=== PATIENT | female | born 1960 | race Caucasian/White ===

== ENCOUNTER 2024-04-26 20:49 | Inpatient (IN) | payer MEDICARE, SELFPAY ==
[2024-04-26] VITALS (8 sets, daily range): BP systolic 115–168; BP diastolic 50–81; PULSE 70–86; BMI 31.7
[2024-04-26 16:32] LABS: % Basophils 0.9 % (0-2); % Eosinophils 1.5 % (0-6); % Immature Granulocytes 0.1 % (0-0.5); % Lymphocytes 15.6 % (20.5-51.1); % Monocytes 8.9 % (1.7-9.3); Absolute Basophils 0.1 10^3/uL (0-0.2); Absolute Eosinophils 0.1 10^3/uL (0-0.7); Absolute Lymphocytes 1.1 10^3/uL (1.2-3.4); Absolute Monocytes 0.6 10^3/uL (0.1-0.6); Absolute Neutrophils 4.9 10^3/uL (1.4-6.5); Hematocrit 41.5 % (37.0-47.0); Hemoglobin 14.9 g/dL (12.0-16.0); Mean Corp Hgb Conc. 35.9 g/dL (33.0-37.0); Mean Corpuscular Hgb 31.5 pg (27.0-31.0); Mean Corpuscular Volume 87.7 fL (81.0-99.0); Mean Platelet Volume 9.9 fL (7.4-10.4); Nucleated Red Blood Cells % 0 %; Platelet Count 244 10^3/uL (130-400); Red Blood Cell Count 4.73 10^6/uL (4.20-5.40); Red Cell Dist. Width 11.8 % (11.5-14.5); White Blood Cell Count 6.7 10^3/uL (4.8-10.8)
--- NOTE | 2024-04-26 16:38 | ED.GENMED ---
History of Present Illness
General
Chief Complaint: Fainting/Passed Out
Source: patient
Exam Limitations: none
Time Seen by Provider: 04/26/24 15:56
Nursing documentation reviewed up to this point in time: agreed with
History of Present Illness
History of Present Illness:
Patient is a 63 yr old female who has a history of neurocardiogenic syncope, lupus presents to the ER for evaluation. Patient reports she has chronic issues with vomiting diarrhea this occurs intermittently with medication changes. This is not
new. Some of her medicines were recently changed in fact her Cymbalta was recently increased and she has had issues over the past several weeks with nausea vomiting diarrhea. She felt like she was going to pass out yesterday when she stood up
however today she was sitting on the toilet having diarrhea and vomiting and passed out and felt her body going to the wall. She currently feels better because she feels that she is laying down. She denies any nausea vomiting currently. She
denies any associated chest pain. She does feel very dehydrated.
Past History
Past History
ED Past Medical History: Other (NEUROCARDIOGENIC SYNCOPE, asthma)
Social History
Tobacco: Non-smoker
Alcohol: None
Drug: None
Personal:
Living: with family
Review of Systems
Review of Systems
Allergies reviewed?: Yes
All Other Systems: ROS reviewed and negative except as documented in HPI and ROS
Constitutional: Reports no symptoms; Denies fever, fatigue or chills
EENT: Reports no symptoms
Respiratory: Reports no symptoms
Cardiac: Reports syncope
ABD/GI: Reports nausea, diarrhea and bloody stools; Denies abdominal pain
: Reports no symptoms
Musculoskeletal: Reports no symptoms
Skin: Reports no symptoms
Neurological: Reports no symptoms
Psychiatric: Reports no symptoms
Phy Exam
General Physical Exam
General Presentation: no apparent distress
General age: appears stated age
General Skin: warm and dry
General Habitus: normal
General Mental: alert
General Hydration: appears well hydrated
ENT Exam
ENT Exam: other (dry mucus membranes )
Cardiovascular Exam
Cardiovascular Exam: regular rate/rhythm, no murmur and normal peripheral pulses
Pulmonary Exam
Pulmonary Exam: lungs clear and no respiratory distress
Neurological Exam
Neurological Exam: alert and oriented x3
Musculoskeletal Exam
Musculoskeletal Exam: full ROM
Skin Exam
Skin Exam: normal color and warm/dry
Psychiatric Exam
Psychiatric Exam: normal mood/affect
Course
Orders/Labs/Results
Orders:
Orders
04/26/24 16:26
Complete Blood Count/With Diff Urgent
Comprehensive Metabolic Panel Urgent
04/26/24 16:38
Electrocardiogram (*1) Stat
Reason for Study: Other
Other Reason for Exam: chest pain
Cardiac Monitoring- Treatment ONCE
EKG- Treatment ONCE
IV Insert/Care/Rem.- Treatment PRN
04/26/24 16:46
0.9% Sodium Chloride 1000 ml [Nss] 1,000 ml IV BOLUS
04/26/24 19:34
Add On- LAB Urgent
Tests Added?: Magnesium
04/26/24 19:43
Add On- LAB Urgent
Tests Added?: magnesium
Potassium Chloride 10% Elixir [KCl Elixir] 40 meq PO NOW STA
Abnormal Lab Results
04/26/24
16:26
MCH 31.5 H pg
(27.0-31.0)
Absolute Lymphs (auto) 1.1 L 10^3/uL
(1.2-3.4)
Lymphocytes % 15.6 L %
(20.5-51.1)
Sodium 133 L mmol/L
(135-145)
Potassium 3.3 L mmol/L
(3.5-5.1)
Chloride 92 L mmol/L
(98-107)
Carbon Dioxide 32 H mmol/L
(22-30)
BUN 23 H mg/dl
(7-17)
Creatinine 1.4 H mg/dL
(0.6-1.0)
04/26/24 16:26
04/26/24 16:26
Vital Signs
Initial and Last Documented VS:
Initial Vital Signs
Pulse Resp BP Pulse Ox
54 14 125/77 95
04/26/24 16:15 04/26/24 16:15 04/26/24 16:15 04/26/24 16:15
Last Documented Vital Signs
Pulse Resp BP Pulse Ox
54 13 118/50 95
04/26/24 18:30 04/26/24 18:30 04/26/24 18:00 04/26/24 18:30
Toggle Press Operator consulted with Physician
Toggle Press Operator consulted with physician?: Yes
Name of Physician Consulted: Christopher
MDM/Problems Addressed
MDM/Problems Addressed:
Patient is a 63-year-old female who presents to the ER for evaluation of syncope. Patient has a history of neurocardiogenic syncope and also has a nausea vomiting diarrhea and had syncopal episode while having diarrhea on the toilet today. Patient
has no associated chest pain. She presents awake alert no acute distress but she does appear dehydrated was given fluids. Kidney function elevated : BUN 23 creat: 1.4 Potassium mildly low at 3.3 ; wbc nml
Patient received fluids here and is feeling better however Patient's EKG however shows a QTc of 607. With syncope and elevated prolonged QTc will adm for further monitoring
Discussed with Dr. Fisher will order magnesium supplement potassium as patient's potassium is 3.3.
Chronic conditions affecting care:
Neurocardiogenic syncope, reflux hypertension Lupus
*Pulse Oximetry
Patient hypoxic: no
*EKG
Interpretation: abnormal
Heart Rate: 59
Rate: bradycardiac
Rhythm: sinus and other (prolonged QTC )
QRS Pattern: normal QRS
Ischemia: non-specific ST changes
*Critical Care Note
Total Time (30-74mins, 75-104mins- exclusive of procedures): Not Applicable
Data Reviewed
Review of Other/Old Records Reveals: Other (Previous EKGs)
Source: patient
Patient Management
Discussion with other providers: Associate Veterinarian (DR Fisher )
ED Attending Note
-
Portions of this chart may have been created with voice recognition software.� Occasional wrong word or��sound alike� substitutions may have occurred due to the inherent limitations of voice recognition software.
Discharge Plan
Departure
Patient Disposition: Admit
Date of Disposition: 04/26/24
Time of Disposition: 19:33
Admit to: Telemetry
Admit to doctor: hospitalist
Presentation/result/management discussed w/ accepting MD/DO: Hospitalist
Patient with high blood pressure during this ER visit?: No
Condition: Fair
Covid-19: Not Applicable
Discharge Problem:
Syncope, prolonged qtc, Acute dehydration
Prescriptions:
No Action
celecoxib 200 mg Capsule
200 mg PO Q48H
tramadol 50 mg Tablet
50 mg PO DAILYPRN PRN (Reason: moderate pain)
triamterene-hydrochlorothiazid 37.5-25 mg Capsule
0.5 cap PO DAILY
lorazepam 0.5 mg Tablet
0.5 mg PO HSPRN PRN (Reason: anxiety)
pantoprazole 40 mg Tablet,Delayed Release (Dr/Ec)
40 mg PO DAILY
diphenhydramine HCl [Benadryl] 25 mg Capsule
25 mg PO QPM
aspirin 81 mg Tablet,Chewable
81 mg PO DAILY
hydroxychloroquine 200 mg Tablet
200 mg PO BID
albuterol sulfate 90 mcg/actuation Hfa Aerosol Inhaler
2 puff INHALATION R Q6HPRN PRN (Reason: sob)
fluticasone propionate [Flonase] 50 mcg/actuation [place],Suspension
1 spray INTRANASAL QPM
ezetimibe 10 mg Tablet
10 mg PO QPM
cyclosporine [Restasis] 0.05 % Dropperette
1 drp BOTH EYES QID
duloxetine 60 mg Capsule,Delayed Release(Dr/Ec)
60 mg PO DAILY
cholecalciferol (vitamin D3) [Vitamin D3] 25 mcg (1,000 unit) Tablet
25 mcg PO DAILY
nebivolol 2.5 mg Tablet
5 mg PO QPM
Patient Comments:
04/26/24: Patient can adjust dosage depending on blood pressure
melatonin 10 mg Tablet
10 mg PO HS
guaifenesin [Mucinex] 600 mg Tablet Extended Release 12hr
600 mg PO QPM
Referrals:
Drew Summers MD [Family Provider] -
Interventions
Interventions:
*Risk Screen - Suicide Last Done: 04/26/24 15:30
*General Assessment Last Done: 04/26/24 15:30
*Neglect/Abuse Screening Last Done: 04/26/24 15:30
ED- Fall Risk Assessment Last Done: 04/26/24 15:30
*ED COVID-19 Vaccine History Last Done: 04/26/24 15:30
ED- Cardiac Assessment Last Done: 04/26/24 16:27
ED- Neurological Assessment Last Done: 04/26/24 16:27
Discharge Date and Time
Print Language: WELSH
[2024-04-26 16:58] LABS: ALT (SGPT) 17 U/L (0-35); AST (SGOT) 32 U/L (14-36); Albumin 4.2 g/dl (3.5-5.0); Alkaline Phosphatase 96 U/L (38-126); Blood Urea Nitrogen 23 mg/dl (7-17); Calcium 9.7 mg/dl (8.4-10.2); Carbon Dioxide 32 mmol/L (22-30); Chloride 92 mmol/L (98-107); Glucose 99 mg/dl (70-99); Potassium 3.3 mmol/L (3.5-5.1); Sodium 133 mmol/L (135-145); Total Bilirubin 0.8 mg/dl (0.2-1.3); Total Protein 6.6 g/dl (6.3-8.2); eGFR 41.75
[2024-04-26] MEDS: NSS 1000 IV (17:26)
[2024-04-26] MEDS: KCL ELIXIR 40 MEQ PO (19:54)
[2024-04-26 20:15] LABS: Magnesium 2.1 mg/dl (1.6-2.3)
--- NOTE | 2024-04-26 20:19 | HPS.HSE ---
Family Physician
-
Family Physician: Drew Summers
Chief Complaint
-
Syncope
History of Present Illness
Patient is a 63y F with PMH significant for dysautonomia, recurrent syncope, hypertension and lupus who presents to ED complaining of syncopal episode at home. Patient states that she has been feeling somewhat lightheaded and 'near syncopal' for
the past few days. Patient notes lifelong history of recurrent syncope. She is generally aware of the preceding symptoms and has done very well to manage her symptoms without venice syncope in recent years.
She reports recent issues with N/V/D over the past few weeks. She states that these issues occur any time she has adjustments in her med regimen.
One month ago, she was newly started on duloxetine, pravastatin and alprazolam. She developed crampy LE pain that she has experienced with prior statins.
1 1/2 weeks ago she saw her PCP again. Pravastatin was discontinued, duloxetine was increased from 30mg to 60mg. Her HCTZ was also changed to Dyazide at that time.
Patient reports that she has been drinking fluids and Liquid IV in an attempt to replace her GI losses.
Today, she felt nauseated and had emesis and diarrhea. She was sitting on the toilet when she felt lightheaded, flushed and with diaphoresis. She lost consciousness.
Patient states that she slumped against the wall near the toilet. She denies any significant injury, trauma or impact. She estimates that she was unconscious for only a few seconds.
Given venice syncope and continued lightheadedness and GI symptoms, patient presented to the ED for further evaluation.
Patient states that she has been sleeping poorly for the past several months. Significant stress. Her at the end of January.
Medical History
Past Medical History
Past Medical History: Reports Other
Additional Past Medical History:
Neurocardiogenic Syncope
Familial Dysautonomia
Hypertension
Endometrial Cancer
GERD
Asthma
Lupus
Migraine Headaches
Anxiety / depression
Obesity
Hypothyroidism
Past Surgical History: Reports Other
Additional Past Surgical History:
Right Shoulder Surgery
Hysterectomy / BSO
D&C
T&A
Social History
Tobacco: Non-smoker
Alcohol: None
Drug: None
Personal: ( in January.)
Family History
Family History: Not pertinent
Allergies / Home Medications
Allergies reflects when Allergies were last updated in [facility].
Home Medications with original date entered in [facility]
Allergy/Medication List:
Allergies
Allergy/AdvReac Type Severity Reaction Status Date / Time
amoxicillin trihydrate Allergy severe Verified 04/26/24 15:38
[From Augmentin] diarrhea
codeine Allergy SOB, Verified 04/26/24 15:38
flushing,
rapid
heart rate
iron [Iron] Allergy Diarrhea Verified 04/26/24 15:38
lisinopril Allergy Unknown Verified 04/26/24 15:38
metformin Allergy Pharmacy Verified 04/26/24 15:38
to Review
NSAIDS (Non-Steroidal Allergy Flushing, Verified 04/26/24 15:38
Anti-Inflamma shortness
[Nsaids] of breath,
rapid
heart
rate, rash
potassium clavula Allergy severe Verified 04/26/24 15:38
*RETIRED-05/03/12 diarrhea
[From Augmentin]
prednisone Allergy Shortness Verified 04/26/24 15:38
of Breath
Mbydnfr-GUK-TdP Reductase Allergy Unknown Verified 04/26/24 15:38
Inhibitor
valsartan Allergy Rash Verified 04/26/24 15:38
'bunch of antibiotics' Allergy Diarrhea Uncoded 04/26/24 15:38
Enviornmental Allergy Sneezing, Uncoded 04/26/24 15:38
asthma
Gluten, dairy Allergy Diarrhea Uncoded 04/26/24 15:38
Home Medications
albuterol sulfate 90 mcg/actuation aerosol inhaler 2 puff inhalation R Q6HPRN PRN sob 04/26/24
aspirin 81 mg chewable tablet 81 mg PO DAILY 04/26/24
celecoxib 200 mg capsule 200 mg PO Q48H 04/26/24
cholecalciferol (vitamin D3) 25 mcg (1,000 unit) tablet (Vitamin D3) 25 mcg PO DAILY 04/26/24
cyclosporine 0.05 % eye drops in a dropperette (Restasis) 1 drp BOTH EYES QID 04/26/24
diphenhydramine HCl 25 mg capsule (Benadryl) 25 mg PO QPM 04/26/24
duloxetine 60 mg capsule,delayed release 60 mg PO DAILY 04/26/24
ezetimibe 10 mg tablet 10 mg PO QPM 04/26/24
fluticasone propionate 50 mcg/actuation nasal spray,suspension 1 spray intranasal QPM 04/26/24
guaifenesin 600 mg tablet, extended release 12 hr (Mucinex) 600 mg PO QPM 04/26/24
hydroxychloroquine 200 mg tablet 200 mg PO BID 04/26/24
lorazepam 0.5 mg tablet 0.5 mg PO HSPRN PRN anxiety 04/26/24
melatonin 10 mg tablet 10 mg PO HS 04/26/24
nebivolol 2.5 mg tablet 5 mg PO QPM 04/26/24
pantoprazole 40 mg tablet,delayed release 40 mg PO DAILY 04/26/24
tramadol 50 mg tablet 50 mg PO DAILYPRN PRN moderate pain 04/26/24
triamterene 37.5 mg-hydrochlorothiazide 25 mg capsule 0.5 cap PO DAILY 04/26/24
Review of Systems
-
History Source: Patient
A 12 point ROS was completed and negative except as noted: Yes
Constitutional: Reports Fatigue and Sleep Disturbance; Denies Fever or Chills
EENT: Denies Sore Throat
Respiratory: Denies Cough or Trouble Breathing
Cardiac: Reports Diaphoresis and Syncope; Denies Chest Pain or Palpitations
Abdomen/GI: Reports Nausea, Vomiting and Diarrhea; Denies Abdominal Pain
: Denies Dysuria, Frequency or Flank Pain
Musculoskeletal: Denies Joint Pain or Edema
Neurological: Reports Dizzy; Denies Headache
Psych: Denies Depression or Anxiety
Physical Exam
Vital Signs
Vital Signs
Temp Pulse Resp BP Pulse Ox
97.8 F 65 11 118/50 99
04/26/24 20:13 04/26/24 20:00 04/26/24 20:00 04/26/24 18:00 04/26/24 20:00
Physical Exam
General: Other (63y F in no acute distress.)
HEENT: Moist mucous membranes, PERRLA and Other (Thick neck.)
Respiratory: Clear; No Wheezes, Rales or Rhonchi
Cardiac: S1/S2 and Regular Rhythm; No Murmur
GI: Soft, Non Tender, Non Distended and Normal Bowel Sounds
Musculoskeletal: No Clubbing, No Cyanosis and No Edema
Neuro: AO x 3
Laboratory Results
-
04/26/24 16:26
04/26/24 16:26
Laboratory Results
Total Bilirubin 0.8 mg/dl (0.2-1.3) 04/26/24 16:26
AST 32 U/L (14-36) 04/26/24 16:26
ALT 17 U/L (0-35) 04/26/24 16:26
Alkaline Phosphatase 96 U/L (38-126) 04/26/24 16:26
Impression/Plan
-
A/P: Patient is a 63y F with PMH significant for dysautonomia, neurocardiogenic syncope and lupus who presents to ED complaining of syncopal event today.
Syncope - Likely Vasovagal
Familial Dysautonomia
Chronic Neurocardiogenic Syncope
Long QT
- Admit to monitored bed for further evaluation and treatment.
- Recent volume losses / GI distress which patient attributes to recent med adjustments.
- IVF support.
- Monitor on tele and follow serial EKG for QT monitoring.
- Hold QT prolonging medications (Plaquenil, tramadol, etc).
- Hold duloxetine given this is most recent addition.
- Cardiology evaluation for additional recommendations.
MERRY
Hypokalemia
Mild Hyponatremia
Metabolic Alkalosis
- Likely due to GI / volume losses.
- SCr = 1.4 compared to known baseline of 0.9.
- IVF support with electrolyte replacement as noted above.
- Magnesium is normal.
- Follow for improvement in labs / lytes.
Benign Hypertension
- Stable. Continue nadolol with holding parameters.
- Would hold / possibly discontinue HCTZ.
Anxiety / Depression
Insomnia
- Hold duloxetine for now as this is most recent med addition / change.
- Hold alprazolam. Continue HS melatonin for sleep.
- Follow-up as an outpatient.
Hypothyroidism
- Listed diagnosis of hypothyroidism on outpatient record.
- Not on any T4 supplementation.
- Update TFTs.
Lupus
- Stable at present.
- Hold Plaquenil as noted above given significant QT prolongation.
IBS
- Patient reports long history of GI upset / diarrhea that tends to be triggered by med changes, etc.
- Follow for any new / worsening symptoms during her stay.
DVT Prophylaxis: SCDs
Code Status: Full
[2024-04-26] MEDS: LR 1000 IV (22:06)
[2024-04-26] MEDS: RESTASIS 0.05% OPHTHALMIC EMULSION 1 DROPS BOTH EYES (22:08)
[2024-04-26] MEDS: MELATONIN 10 MG PO (22:08)
[2024-04-26 22:51] LABS: TSH Reflex To Free T4 2.95 uIU/ml (0.47-4.68)
--- NOTE | 2024-04-26 23:49 | TRANSFER ---
received pt from ED via stretcher. pt stood and pivoted from stretcher to bed with quad cane and nurse assistance. AAOX3, VSS. oriented to room, call cerda within reach, plan of care ongoing.
[2024-04-27] VITALS (8 sets, daily range): BP systolic 105–151; BP diastolic 54–81; PULSE 66–89; O2SAT 95–96; BMI 32.0
[2024-04-27] MEDS: LR 1000 IV ×3 (05:32→21:36)
[2024-04-27] MEDS: TYLENOL 650 MG PO (05:45)
[2024-04-27 07:55] LABS: Hematocrit 36.9 % (37.0-47.0); Hemoglobin 13.1 g/dL (12.0-16.0); Mean Corp Hgb Conc. 35.5 g/dL (33.0-37.0); Mean Corpuscular Hgb 30.5 pg (27.0-31.0); Mean Platelet Volume 10.2 fL (7.4-10.4); Platelet Count 222 10^3/uL (130-400); Red Blood Cell Count 4.29 10^6/uL (4.20-5.40); White Blood Cell Count 5.4 10^3/uL (4.8-10.8)
[2024-04-27 08:13] LABS: Blood Urea Nitrogen 15 mg/dl (7-17); Calcium 9.4 mg/dl (8.4-10.2); Carbon Dioxide 31 mmol/L (22-30); Chloride 97 mmol/L (98-107); Estimated Creatinine Clearance 53 ml/min; Glucose 96 mg/dl (70-99); Potassium 3.3 mmol/L (3.5-5.1); Sodium 135 mmol/L (135-145); eGFR 50.23
[2024-04-27] MEDS: LOW STRENGTH ASPIRIN 81 MG PO (08:16)
[2024-04-27] MEDS: RESTASIS 0.05% OPHTHALMIC EMULSION 1 DROPS BOTH EYES ×2 (08:17→20:17)
[2024-04-27] MEDS: KCL 20 MEQ PO (08:42)
[2024-04-27] MEDS: KCL 270 MEQ IV (09:34)
[2024-04-27] MEDS: IMODIUM 2 MG PO (09:34)
--- NOTE | 2024-04-27 10:12 | W.PN.HOSP.TC ---
Today's Communication/Plan
-
replete K+ and hold QT prolonging agents, follow serial EKGs
Cards consult
continue IVF
holding all new meds (Cymbalata, BZD, diuretic)
Assessment / Plan
Assessment / Plan
Assessment:
Syncope - Likely Vasovagal
Familial Dysautonomia
Chronic Neurocardiogenic Syncope
Long QT >600 - poses threat to life with potential for arrhythmia
- monitor on tele
- Recent volume losses / GI distress which patient attributes to recent med adjustments.
- IVF continue
- Monitor on tele and follow serial EKG for QT monitoring.
- normalize K+
- Hold QT prolonging medications (Plaquenil, tramadol, etc).
- Hold duloxetine given this is most recent addition.
- Cardiology evaluation for additional recommendations.
MERRY
Hypokalemia
Mild Hyponatremia
Metabolic Alkalosis
- Likely due to GI/volume losses.
- SCr = 1.4 compared to known baseline of 0.9.
- IVF support with electrolyte replacement as needed. Note, patient cannot tolerate IV KCL.
- Magnesium is normal.
- Follow for improvement in labs / lytes.
Benign Hypertension
- Stable. Continue nadolol with holding parameters.
- Will discontinue HCTZ.
Anxiety / Depression
Insomnia
- Hold duloxetine for now as this is most recent med addition/change.
- Hold alprazolam. continue HS melatonin for sleep.
- Follow-up as an outpatient.
Hypothyroidism
- Listed diagnosis of hypothyroidism on outpatient record.
- Not on any T4 supplementation.
- Update TFTs.
Lupus
- Stable at present.
- Hold Plaquenil as noted above given significant QT prolongation.
- OP Rheum f/u
IBS
- Patient reports long history of GI upset / diarrhea that tends to be triggered by med changes, etc.
- Follow for any new / worsening symptoms during her stay.
Bereavement in setting of recent loss of spouse
- appropriately grieving
- declines psych eval
DVT Prophylaxis: SCDs
Code Status: Full
Anticipated Discharge: > 48 hours
Subjective/Interval History
-
Date of Service: April 27, 2024
denies any new complaints at present
did not tolerated IV KCL
Objective Data
-
Labs:
Laboratory Results
04/27/24
07:32
WBC 5.4
Hgb 13.1
Hct 36.9 L
Plt Count 222
Sodium 135
Potassium 3.3 L
Chloride 97 L
Carbon Dioxide 31 H
BUN 15
Creatinine 1.2 H
Glucose 96
Calcium 9.4
Vital Signs:
Vital Signs
Temp Pulse Resp BP Pulse Ox
98.1 F 66 12 130/60 100
04/27/24 07:55 04/27/24 07:55 04/27/24 07:55 04/27/24 07:55 04/27/24 07:55
Physical Exam
-
General: No Apparent Distress
HEENT: Normocephalic and Atraumatic
Respiratory: Negative Wheezes
Cardiac: Regular Rhythm and S1/S2
GI: Soft
Musculoskeletal: No Edema
Neuro: AO x 3
Psych: Calm
Data Reviewed
-
Total Time Spent with Patient (in minutes): 51
Labs: Labs Reviewed by me
[2024-04-27] MEDS: PROTONIX 40 MG PO (10:53)
[2024-04-27] MEDS: KCL ELIXIR 40 MEQ PO ×2 (10:53→20:17)
--- NOTE | 2024-04-27 12:05 | PTCARENOTE ---
pt c/o warm and flushed skin with IV KCL. MD made aware. lower the rate. pt continued to c/o flushed skin w/ sob. KCL stopped as per MD order.
--- NOTE | 2024-04-27 12:20 | CON.CAR ---
Addendum entered and electronically signed by Sameer Ordoñez DO 04/28/24 08:01:
I saw and examined the patient 2:00 PM 04/27/2024.
The Staff Radiologist's note was reviewed and I agree with the note.
Comment:
Plan:
Prolonged QT in setting of hypokalemia. QTc continues to improve
Cont tele. Monitor QTc.
Avoid QT prolonging meds.
Tramadol and Plaquenil have been stopped
Stop HCTZ
Start Aldactone given hypokalemia and for better bp control
Check echo
Outpt followup with Dr Abdalla
Original Note:
Consultation
Consultation Request
Date/Time Consultation Requested: 04/26/24 at 2125
Date/Time Consultation Performed: 04/27/24 at 1130
Requesting Provider: Dr. Mathews
Performing Provider: Dr. Ordoñez
Reason for Consultation: Syncope, long QT
Medical History
-
History of Present Illness:
Patient came to [facility] yesterday with syncope and was admitted with a long QT and was admitted with consultation to cardiology. Patient's in January and the last few months have been hard. Patient also has long-standing medical issues
and reports various medication intolerances that usually result in N/V/D. Following passing of her patient was started on Cymbalta. She saw her PCP and dose then increased a few weeks ago. Patient also with a h/o hypokalemia, but has been
intolerant to KCl and instead tries to eat a banana daily. She has a h/o POTS and dysautonomia and HTN so finding the right meds for BP control has been difficult, but she reports that HCTZ seemed to be the best tolerated. Unfortunately, HCTZ has
worsened hypokalemia and at times made her too hypotensive, so at her last cardiology office visit 11/22/23 her HCTZ was decreased to 12.5 mg five days a week, it was then stopped by her PCP and replaced with Dyazide (triamterene/HCTZ). Patient
reports N/V/D in response to med changes and while on the toilet last night she had syncope. She came to [facility] and her QTc was 607. Potassium was 3.3. Patient admitted and new meds plus QT prolonging meds (Plaquenil and tramadol) held.
PMH:
POTS
Dysautonomia
HTN
SLE
Elevated calcium score
Hyperlipidemia with statin intolerance
Past Medical History
Past Medical History: Other (in HPI)
Past Surgical History: Gynecological (D&C, LAVH and BSO for endometrial cancer at [facility] 2016), Orthopedic and Tonsilectomy
Social History
Tobacco: Non-Smoker
Alcohol: None
Drug: None
Personal: (her at 01/2024)
Living: Alone
Family History
Family History: CAD and Cancer
Allergies / Home Medications
Allergy/AdvReac Type Severity Reaction Status Date / Time
amoxicillin trihydrate Allergy severe Verified 04/26/24 15:38
[From Augmentin] diarrhea
codeine Allergy SOB, Verified 04/26/24 21:29
flushing,
rapid
heart rate
iron [Iron] Allergy Diarrhea Verified 04/26/24 15:38
lisinopril Allergy COUGH Verified 04/26/24 21:29
metformin Allergy DIARRHEA Verified 04/26/24 21:29
NSAIDS (Non-Steroidal Allergy Flushing, Verified 04/26/24 15:38
Anti-Inflamma shortness
[Nsaids] of breath,
rapid
heart
rate, rash
prednisone Allergy Shortness Verified 04/26/24 15:38
of Breath
Joggsmn-MJG-JlT Reductase Allergy myositis Verified 04/26/24 21:29
Inhibitor
valsartan Allergy Rash-higher Verified 04/26/24 21:29
doses
cause rash
'bunch of antibiotics' Allergy Diarrhea Uncoded 04/26/24 15:38
Enviornmental Allergy Sneezing, Uncoded 04/26/24 15:38
asthma
Gluten, dairy Allergy Diarrhea Uncoded 04/26/24 15:38
�Medication �Instructions �Recorded �Confirmed �Type
albuterol sulfate 90 mcg/actuation 2 puff inhalation R Q6HPRN PRN sob 04/26/24 04/26/24 History
aerosol inhaler
aspirin 81 mg chewable tablet 81 mg PO DAILY 04/26/24 04/26/24 History
celecoxib 200 mg capsule 200 mg PO Q48H 04/26/24 04/26/24 History
cholecalciferol (vitamin D3) 25 25 mcg PO DAILY 04/26/24 04/26/24 History
mcg (1,000 unit) tablet (Vitamin
D3)
cyclosporine 0.05 % eye drops in a 1 drp BOTH EYES QID 04/26/24 04/26/24 History
dropperette (Restasis)
diphenhydramine HCl 25 mg capsule 25 mg PO QPM 04/26/24 04/26/24 History
(Benadryl)
duloxetine 60 mg capsule,delayed 60 mg PO DAILY 04/26/24 04/26/24 History
release
ezetimibe 10 mg tablet 10 mg PO QPM 04/26/24 04/26/24 History
fluticasone propionate 50 1 spray intranasal QPM 04/26/24 04/26/24 History
mcg/actuation nasal
spray,suspension
guaifenesin 600 mg tablet, 600 mg PO QPM 04/26/24 04/26/24 History
extended release 12 hr (Mucinex)
hydroxychloroquine 200 mg tablet 200 mg PO BID 04/26/24 04/26/24 History
lorazepam 0.5 mg tablet 0.5 mg PO HSPRN PRN anxiety 04/26/24 04/26/24 History
melatonin 10 mg tablet 10 mg PO HS 04/26/24 04/26/24 History
nebivolol 2.5 mg tablet 5 mg PO QPM 04/26/24 04/26/24 History
pantoprazole 40 mg tablet,delayed 40 mg PO DAILY 04/26/24 04/26/24 History
release
tramadol 50 mg tablet 50 mg PO DAILYPRN PRN moderate pain 04/26/24 04/26/24 History
triamterene 37.5 0.5 cap PO DAILY 04/26/24 04/26/24 History
mg-hydrochlorothiazide 25 mg
capsule
Review of Systems
-
History Source: Patient
All other systems: Negative unless noted
Physical Exam
Vital Signs
Temp Pulse Resp BP Pulse Ox
97.8 F 72 16 123/66 98
04/27/24 11:35 04/27/24 11:35 04/27/24 11:35 04/27/24 11:35 04/27/24 12:02
GEN: NAD, AAOx3
HEENT: EOMI, MMM
LUNGS: CTA B/L, no wheezes or rales
CV: Reg, S1/S2, no murmur
ABD: soft, BS+, NT, ND
EXT: B/L knee high TEDS. No clubbing, cyanosis, lesions or edema B/L
NEURO: Gross non-focal
SKIN: Warm, dry and pink. No rash
Lab Results
04/27/24 07:32
04/27/24 07:32
Impression / Plan
-
PCP: Dr. Summers
Cardiology: Dr. TONO Abdalla
Impression:
Admitted with syncope and long QT 04/26/24
Prolonged QT
Nausea and vomiting, acute on chronic
POTS
Dysautonomia
HTN
SLE
Elevated calcium score
Hyperlipidemia with statin intolerance
Echo 11/27/20: EF 67%, mild MR
Plan:
-Patient came to [facility] yesterday with syncope and was admitted with a long QT and was admitted with consultation to cardiology. Patient's in January and the last few months have been hard. Patient also has long-standing medical
issues and reports various medication intolerances that usually result in N/V/D. Following passing of her patient was started on Cymbalta. She saw her PCP and dose then increased a few weeks ago. Patient also with a h/o hypokalemia, but has
been intolerant to KCl and instead tries to eat a banana daily. She has a h/o POTS and dysautonomia and HTN so finding the right meds for BP control has been difficult, but she reports that HCTZ seemed to be the best tolerated. Unfortunately, HCTZ
has worsened hypokalemia and at times made her too hypotensive, so at her last cardiology office visit 11/22/23 her HCTZ was decreased to 12.5 mg five days a week, it was then stopped by her PCP and replaced with Dyazide (triamterene/HCTZ). Patient
reports N/V/D in response to med changes and while on the toilet last night she had syncope. She came to [facility] and her QTc was 607. Potassium was 3.3. Patient admitted and new meds plus QT prolonging meds (Plaquenil and tramadol) held.
-BP improved after IVFs. Patient worked with PT just prior to my visit and no orthostatic symptoms.
-Long talk with patient going over previous meds and what has worked for her in the past. Agree with discontinuation of all HCTZ products due to recurrent hypokalemia and now prolonged QTc. Will add spironolactone 12.5 mg daily.
-Intolerant to KCl PO tablets and to KCl riders. She was able to tolerate KCl liquid. Will order additional KCl liquid now. Follow BMP as in outpatient in 1-2 weeks.
-QTc was 607 ms on admission by my review and then improved to 514 this morning. Recheck ECG in AM
-Also personally reviewed office ECG from 11/22/23 and QTc was normal and of note patient was taking tramadol and Plaquenil at that time.
-Would check ECG with syncope and h/o mild MR.
-No chest pain or palpitations.
-Patient with h/o elevated calcium score and she has been statin intolerant. Most recently she tried pravastatin, but again developed abdominal issues. Reviewed that it's probably best to only add one medication at a time and that depending on her
response to spironolactone that she and Dr. Abdalla can discuss statin therapy at her upcoming office visit 05/23/24 at 10 AM.
[2024-04-27] MEDS: ZETIA 10 MG PO (17:00)
[2024-04-27] MEDS: ALDACTONE 12.5 MG PO (17:00)
[2024-04-27] MEDS: BYSTOLIC 5 MG PO (17:00)
--- NOTE | 2024-04-27 18:14 | CM ---
Patient lives alone in a [place] community; she has a 2 story home with 3 entry steps. She stays on the first floor of her home. Huma has a cane and RW.
Huma's 3 months ago, has ongoing anxiety and depression (not new, but exacerbated by loss). Support provided as well as information about grief support group if interested. Huma has support from her friends; Breonna is her
primary contact at this time.
CM will follow to coordinate discharge planning needs as identified during hospitalization.
PCP: Drew Summers
Pharmacy: [facility] on [address] in [place].
[2024-04-27] MEDS: MELATONIN 10 MG PO (21:44)
[2024-04-27] MEDS: CELEBREX 100 MG PO (21:44)
[2024-04-28 03:45] VITALS: BP 119/57
[2024-04-28] MEDS: LR 1000 IV (05:41)
[2024-04-28 06:12] VITALS: BP 115/72; BP 119/47; BP 134/70; PULSE 62; PULSE 66; PULSE 76
[2024-04-28 07:05] VITALS: BP 124/50
[2024-04-28 07:11] LABS: Hematocrit 34.7 % (37.0-47.0); Hemoglobin 12.3 g/dL (12.0-16.0); Mean Corp Hgb Conc. 35.4 g/dL (33.0-37.0); Mean Corpuscular Hgb 31.6 pg (27.0-31.0); Mean Corpuscular Volume 89.2 fL (81.0-99.0); Mean Platelet Volume 10.2 fL (7.4-10.4); Platelet Count 203 10^3/uL (130-400); Red Blood Cell Count 3.89 10^6/uL (4.20-5.40); Red Cell Dist. Width 12.2 % (11.5-14.5); White Blood Cell Count 5.1 10^3/uL (4.8-10.8)
[2024-04-28 08:03] LABS: Blood Urea Nitrogen 10 mg/dl (7-17); Calcium 9.3 mg/dl (8.4-10.2); Carbon Dioxide 28 mmol/L (22-30); Chloride 102 mmol/L (98-107); Estimated Creatinine Clearance 63 ml/min; Glucose 89 mg/dl (70-99); Potassium 4.1 mmol/L (3.5-5.1); Sodium 138 mmol/L (135-145); eGFR > 60.00
[2024-04-28] MEDS: KCL ELIXIR 40 MEQ PO (09:28)
[2024-04-28] MEDS: ALDACTONE 12.5 MG PO (09:28)
[2024-04-28] MEDS: PROTONIX 40 MG PO (09:28)
[2024-04-28] MEDS: RESTASIS 0.05% OPHTHALMIC EMULSION 1 DROPS BOTH EYES (09:28)
[2024-04-28] MEDS: LOW STRENGTH ASPIRIN 81 MG PO (09:28)
[2024-04-28 11:00] VITALS: BP 141/70
--- NOTE | 2024-04-28 12:36 | W.PN.HOSP.TC ---
Today's Communication/Plan
-
dc to home
Assessment / Plan
Assessment / Plan
Assessment:
Syncope - Likely Vasovagal
Familial Dysautonomia
Chronic Neurocardiogenic Syncope
Long QT >600 - poses threat to life with potential for arrhythmia
- monitor on tele - no arrhythmia
- Recent volume losses / GI distress which patient attributes to recent med adjustments.
- improved with IVF
- Monitor on tele and follow serial EKG for QT monitoring -> has normalized with potassium levels improved
- ok to resume QT prolonging Plaquenil (has been on it previously without QT issues)
- Cards eval appreciated
MERRY
Hypokalemia
Mild Hyponatremia
Metabolic Alkalosis
- Likely due to GI/volume losses.
- all resolved with IVF
- SCr = 1.0 now (baseline is 0.9)
Benign Hypertension
- Stable. Continue nadolol + Aldactone
- Will discontinue HCTZ.
Anxiety / Depression
Insomnia
- stop duloxetine/alprazolam for now as this is most recent med addition/change. Patients states neither are helping
- continue HS melatonin for sleep.
- Follow-up as an outpatient with PCP
Hypothyroidism
- Listed diagnosis of hypothyroidism on outpatient record.
- Not on any T4 supplementation.
- TSH normal here
Lupus
- Stable at present.
- ok to resume QT prolonging Plaquenil (has been on it previously without QT issues)
- OP Rheum f/u
IBS
- Patient reports long history of GI upset / diarrhea that tends to be triggered by med changes, etc.
- Follow for any new / worsening symptoms during her stay.
Bereavement in setting of recent loss of spouse
- appropriately grieving
- declines psych eval
DVT Prophylaxis: SCDs
Code Status: Full
More than 30 minutes spent in discharge including
Final examination of the patient
Summarizing hospital stay
Instructions for continuing care to all relevant caregivers
Preparation of discharge records, prescriptions, and referral forms
Total time spent (in minutes):41
Anticipated Discharge: Today
Subjective/Interval History
-
Date of Service: April 28, 2024
no new complaints at present
QTC improved and Echo unremarkable, patient eager for DC
Objective Data
-
Labs:
Laboratory Results
04/28/24
06:28
WBC 5.1
Hgb 12.3
Hct 34.7 L
Plt Count 203
Sodium 138
Potassium 4.1
Chloride 102
Carbon Dioxide 28
BUN 10
Creatinine 1.0
Glucose 89
Calcium 9.3
Vital Signs:
Vital Signs
Temp Pulse Resp BP Pulse Ox
98.2 F 67 20 141/70 100
04/28/24 11:00 04/28/24 11:00 04/28/24 11:00 04/28/24 11:00 04/28/24 11:00
I&O
04/27/24 04/28/24 04/29/24
06:59 06:59 06:59
Intake Total 2520 / 2520
Balance 2520 / 2520
Physical Exam
-
General: No Apparent Distress
HEENT: Normocephalic and Atraumatic
Respiratory: Negative Wheezes
Cardiac: Regular Rhythm and S1/S2
GI: Soft
Genito-urinary: No Costovertebral Tender
Musculoskeletal: No Edema
Neuro: AO x 3
Hematologic / Lymphatic: No Lymphadenopathy
Psych: Calm
Data Reviewed
-
Total Time Spent with Patient (in minutes): 41
Labs: Labs Reviewed by me
--- NOTE | 2024-04-28 12:45 | W.DS.TRANS ---
DC Summary - Job Placement Officer
-
Discharge Instructions:
Discharge Diagnosis/Procedures syncope/hypokalemia/prolonged QTC/MERRY
Diet Regular
Activity As tolerated
Bathing Restrictions None
Instructions:
Stand-Alone Forms:
Changes to Home Medications: Yes
Discharge Medications:
DC Medications w/original date entered in [employer]
albuterol sulfate 90 mcg/actuation aerosol inhaler 2 puff inhalation R Q6HPRN PRN sob 04/26/24
aspirin 81 mg chewable tablet 81 mg PO DAILY 04/26/24
celecoxib 200 mg capsule 200 mg PO Q48H 04/26/24
cholecalciferol (vitamin D3) 25 mcg (1,000 unit) tablet (Vitamin D3) 25 mcg PO DAILY 04/26/24
cyclosporine 0.05 % eye drops in a dropperette (Restasis) 1 drp BOTH EYES QID 04/26/24
diphenhydramine HCl 25 mg capsule (Benadryl) 25 mg PO QPM 04/26/24
ezetimibe 10 mg tablet 10 mg PO QPM 04/26/24
fluticasone propionate 50 mcg/actuation nasal spray,suspension 1 spray intranasal QPM 04/26/24
guaifenesin 600 mg tablet, extended release 12 hr (Mucinex) 600 mg PO QPM 04/26/24
hydroxychloroquine 200 mg tablet 200 mg PO BID 04/26/24
melatonin 10 mg tablet 10 mg PO HS 04/26/24
nebivolol 2.5 mg tablet 5 mg PO QPM 04/26/24
pantoprazole 40 mg tablet,delayed release 40 mg PO DAILY 04/26/24
spironolactone 25 mg tablet 12.5 mg (1/2 x 25 mg) PO DAILY #30 tabs 04/28/24
Home Medication Changes
stop Ativan, Cymbalta, Tramadol, diuretic BP med
Pending Results: No
Total time spent discharging patient (in min): 41
--- NOTE | 2024-04-28 13:24 | CM ---
cardiac cath lab manager reviewed patient's chart and spouse with patient plan is to home no needs, patient declined the need for visiting nurses at discharge.
Plan; Home no needs.
--- NOTE | 2024-04-28 13:35 | W.PN.CARDCBS ---
Addendum entered and electronically signed by Jim Arora MD 04/28/24 15:19:
I saw and examined the patient.
The Automatic Seamer's note was reviewed and I agree with the note.
Comment: Briefly, 63-year-old woman longstanding history of dysautonomia presenting with syncopal episode which she attributes to her chronic POTS/dysautonomia
Has received IV fluids, not reporting any lightheadedness or dizziness to me today
Telemetry reviewed, maintaining normal sinus rhythm overnight
Found to have prolonged QTc on admission
Of note she was hypokalemic and with repletion of potassium her QTc has normalized
Initiated on Aldactone in place of hydrochlorothiazide given hypokalemia, would discharge on 12.5 mg daily of Aldactone
Plan to check BMP in 1 week
Outpatient cardiology follow-up has been arranged
We will sign off, please recall as needed
Gen: NAD, AAOx3
HEENT: NC/AT, sclera anicteric
Neck: No JVD
CV: RRR, NL s1/s2, no M/R/G
Lungs: CTAB
Abd: S/ND
Ext: No LE edema
Skin: Warm, dry
Neuro: Non-focal
Original Note:
Today's Communication / Plan
-
Discharge home on Aldactone
Check BMP 1 week after discharge
Outpatient cardiology follow-up has been arranged
Impression / Plan
-
PCP: Dr. Summers
Cardiology: Dr. TONO Abdalla
Impression:
Admitted with syncope and long QT 04/26/24
Prolonged QT
Nausea and vomiting, acute on chronic
POTS
Dysautonomia
HTN
SLE
Elevated calcium score
Hyperlipidemia with statin intolerance
Echo 04/27/2024: EF 55 to 60%. Mildly dilated left atrium. No significant valvular disease, PAP 30 to 35 mmHg.
Echo 11/27/20: EF 67%, mild MR
Plan:
-Presented 04/26/24 with syncope, prolonged QTc in setting of nausea, vomiting and diarrhea
-Prolonged QT in setting of hypokalemia. QT normalized with repletion of electrolytes. QTc 470 ms on EKG 04/28/2024.
-Multiple intolerances to medications. Given ongoing hypokalemia with abnormal QTc hydrochlorothiazide not ideal medication.
-Hydrochlorothiazide was discontinued this admission and pt started on Aldactone in its place
-Follow BMP as in outpatient in 1-2 weeks.
-Avoid QT prolonging agents. Cymbalta and tramadol also stopped during admission
-Echo repeated this admission with preserved ejection fraction and no significant valvular disease
-Patient with h/o elevated calcium score and she has been statin intolerant. Most recently she tried pravastatin, but again developed abdominal issues. Reviewed that it's probably best to only add one medication at a time and that depending on her
response to spironolactone that she and Dr. Abdalla can discuss statin therapy at her upcoming office visit 05/23/24 at 10 AM.
HPI 04/27/2024:
Patient came to [facility] yesterday with syncope and was admitted with a long QT and was admitted with consultation to cardiology. Patient's in January and the last few months have been hard. Patient also has long-standing medical issues
and reports various medication intolerances that usually result in N/V/D. Following passing of her patient was started on Cymbalta. She saw her PCP and dose then increased a few weeks ago. Patient also with a h/o hypokalemia, but has been
intolerant to KCl and instead tries to eat a banana daily. She has a h/o POTS and dysautonomia and HTN so finding the right meds for BP control has been difficult, but she reports that HCTZ seemed to be the best tolerated. Unfortunately, HCTZ has
worsened hypokalemia and at times made her too hypotensive, so at her last cardiology office visit 11/22/23 her HCTZ was decreased to 12.5 mg five days a week, it was then stopped by her PCP and replaced with Dyazide (triamterene/HCTZ). Patient
reports N/V/D in response to med changes and while on the toilet last night she had syncope. She came to [facility] and her QTc was 607. Potassium was 3.3. Patient admitted and new meds plus QT prolonging meds (Plaquenil and tramadol) held.
Progress Note - Radiology Technician
Subjective
Date of Service: April 28, 2024
Objective
Labs:
04/28/24 06:28
04/28/24 06:28
Labs
Hgb 12.3 g/dL (12.0-16.0) 04/28/24 06:28
Hct 34.7 % (37.0-47.0) L 04/28/24 06:28
Plt Count 203 10^3/uL (130-400) 04/28/24 06:28
Sodium 138 mmol/L (135-145) 04/28/24 06:28
Potassium 4.1 mmol/L (3.5-5.1) 04/28/24 06:28
BUN 10 mg/dl (7-17) 04/28/24 06:28
Creatinine 1.0 mg/dL (0.6-1.0) 04/28/24 06:28
Glucose 89 mg/dl (70-99) 04/28/24 06:28
Vital Signs and I&O:
Vital Signs
Temp Pulse Resp BP Pulse Ox
98.2 F 67 20 141/70 100
04/28/24 11:00 04/28/24 11:00 04/28/24 11:00 04/28/24 11:00 04/28/24 11:00
Vital Signs
Temp Pulse Resp BP Pulse Ox
98.2 F 67 20 141/70 100
04/28/24 11:00 04/28/24 11:00 04/28/24 11:00 04/28/24 11:00 04/28/24 11:00
Intake & Output
04/26/24 04/27/24 04/28/24 04/29/24
06:59 06:59 06:59 06:59
Intake Total 2520 / 2520
Balance 0 / 2519
--- NOTE | 2024-04-28 13:46 | PN.CDI ---
CDI
- -
CDI:
Physician Documentation Request
Admit Date: 04/26/24 20:49
Dear Doctor Bisi,
Clinical Indicators:
Patient admitted with syncope/hypokalemia/prolonged QTC/MERRY
H & P, 'Today, she felt nauseated and had emesis and diarrhea. She was sitting on the toilet when she felt lightheaded, flushed and with diaphoresis. She lost consciousness.
04/28 PN, 'Syncope - Likely Vasovagal Familial Dysautonomia...Long QT >600...has normalized with potassium levels improved '
Please clarify the likely etiology of the syncope:
Multifactorial, due to long QT and familial dysautonomia
Due to long QT only
Other, please specify
Use of terms such as suspected, likely, concern for, or probable (associated with a specific diagnosis that is being evaluated, monitored, or treated as if it exists) are acceptable and can be coded in the inpatient setting, when documented at the
time of discharge.
Thank you,
Marianna Grove RN BSN
CDI Specialist
available via tiger text
Please use your independent medical judgment in providing your response.
== END 2024-04-28 13:54 | disposition home or self-care (01) | DRG 312 ==
LOC: 4 EAST ACU 20:49
PROVIDERS: ADMITTING PHYSICIAN Hospitalist; ATTENDING PHYSICIAN Internal Medicine; EMERGENCY PHYSICIAN Emergency Medicine; FAMILY PHYSICIAN Family Medicine; OTHER PHYSICIAN Nuclear Medicine Nuclear Cardiology
DX: R55 Syncope and collapse (principal); N17.9 Acute kidney failure, unspecified; E87.1 Hypo-osmolality and hyponatremia; E87.4 Mixed disorder of acid-base balance; E87.6 Hypokalemia; I10 Essential (primary) hypertension; F41.9 Anxiety disorder, unspecified; F32.A Depression, unspecified; F51.05 Insomnia due to other mental disorder; E03.9 Hypothyroidism, unspecified; M32.9 Systemic lupus erythematosus, unspecified; K58.9 Irritable bowel syndrome, unspecified; Z63.4 Disappearance and death of family member; G90.A Postural orthostatic tachycardia syndrome [POTS]; E78.5 Hyperlipidemia, unspecified
CPT/HCPCS: 80048; 80053; 83735; 84443; 85025; 85027; 93005; 93306; 96360; 97163; 97167; 97530; 99284

== ENCOUNTER → 2024-07-19 13:48 | Outpatient (REF) | payer MEDICARE, SELFPAY | LOC: WDC 13:48 | PROVIDERS: ATTENDING PHYSICIAN Family Medicine; REFERRING PHYSICIAN Obstetrics & Gynecology | DX: Z12.31 Encounter for screening mammogram for malignant neoplasm of breast (principal) | CPT/HCPCS: 77063; 77067 ==

== ENCOUNTER → 2024-07-24 10:43 | Outpatient (REF) | payer MEDICARE, SELFPAY | LOC: HWRAD 10:43 | PROVIDERS: ATTENDING PHYSICIAN Family Medicine | DX: M85.80 Other specified disorders of bone density and structure, unspecified site (principal); Z78.0 Asymptomatic menopausal state | CPT/HCPCS: 77080 ==

== ENCOUNTER 2024-09-27 06:20 | Day surgery (SDC) | payer MEDICARE, SELFPAY | END 2024-09-27 09:36 | disposition home or self-care (01) | LOC: GI 06:20 | PROVIDERS: ATTENDING PHYSICIAN Internal Medicine Gastroenterology | DX: K57.30 Diverticulosis of large intestine without perforation or abscess without bleeding (principal); K64.8 Other hemorrhoids; R19.5 Other fecal abnormalities | CPT/HCPCS: 45380; 88305 ==

== ENCOUNTER → 2024-12-25 09:09 | Outpatient (REF) | payer MEDICARE, SELFPAY | LOC: HWRAD 09:09 | PROVIDERS: ATTENDING PHYSICIAN Specialist; FAMILY PHYSICIAN Family Medicine; REFERRING PHYSICIAN Internal Medicine Rheumatology | DX: R79.89 Other specified abnormal findings of blood chemistry (principal) | CPT/HCPCS: 76770 ==

== ENCOUNTER → 2025-03-12 11:48 | Outpatient (REF) | payer MEDICARE, SELFPAY | LOC: REG 11:48 | PROVIDERS: ATTENDING PHYSICIAN Internal Medicine Rheumatology; FAMILY PHYSICIAN Family Medicine | DX: Z11.1 Encounter for screening for respiratory tuberculosis (principal) | CPT/HCPCS: 36415; 86480 ==

== ENCOUNTER 2025-04-18 17:54 | Inpatient (IN) | payer MEDICARE, SELFPAY ==
[2025-04-18] VITALS (9 sets, daily range): BP systolic 97–181; BP diastolic 64–94; PULSE 60–89; BMI 35.2; BMI 34.5
[2025-04-18 13:43] LABS: Hematocrit 43.5 % (37.0-47.0); Hemoglobin 14.9 g/dL (12.0-16.0); Mean Corp Hgb Conc. 34.3 g/dL (33.0-37.0); Mean Corpuscular Volume 91.6 fL (81.0-99.0); Nucleated Red Blood Cells % 0 %; Platelet Count 341 10^3/uL (130-400); Red Cell Dist. Width 11.7 % (11.5-14.5)
[2025-04-18 13:57] LABS: ALT (SGPT) 29 U/L (0-35); AST (SGOT) 51 U/L (14-36); Albumin 4.8 g/dl (3.5-5.0); Alkaline Phosphatase 97 U/L (38-126); Blood Urea Nitrogen 20 mg/dl (7-17); Calcium 10.0 mg/dl (8.4-10.2); Carbon Dioxide 26 mmol/L (22-30); Chloride 96 mmol/L (98-107); Glucose 102 mg/dl (70-99); Potassium 4.6 mmol/L (3.5-5.1); Sodium 129 mmol/L (135-145); Total Protein 7.4 g/dl (6.3-8.2); eGFR > 60.00
[2025-04-18 14:06] LABS: Troponin I < 0.012 ng/ml
--- NOTE | 2025-04-18 15:36 | ED.GENMED ---
History of Present Illness
General
Chief Complaint: Fainting/Passed Out
Time Seen by Provider: 04/18/25 15:03
History of Present Illness
History of Present Illness:
Patient presents to the emergency department multiple episodes of syncope. She has a history of lupus dysautonomia and recurrent syncope in the past. However, she notes she has passed out 4 times in the last week. States that she has been having
some GI upset with nausea vomiting and diarrhea. She states this is not atypical for her. However she has been having more muscle cramping and feels generally 'off.
Past History
Past History
ED Past Medical History: Other (NEUROCARDIOGENIC SYNCOPE, asthma)
Social History
Tobacco: Non-smoker
Alcohol: None
Drug: None
Personal:
Living: with family
Phy Exam
Physical Exam
Physical Exam:
GENERAL APPEARANCE: NAD, well developed/ well nourished
EYES lids/conjunctiva normal
EARS/NOSE/THROAT Malar rash, mucous membranes moist, uvula midline without oral pharyngeal erythema, exudate or swelling
HEAD/NECK normocephalic atraumatic, neck is supple.
RESPIRATORY respiratory effort normal, speaks in full sentences, no accessory muscle use. Lungs clear to auscultation without rhonchi, wheezes, rales
CARDIAC Regular rate and rhythm, no edema.
ABDOMINAL Soft, ND/NT. No pulsatile masses on exam, rebound tenderness, Aguila sign or pain over Mcburney's point.
MUSCLES/EXTREMITIES No abnormal range of motion, no swelling.
SKIN Warm, pink and dry. No rashes
NEUROLOGICAL Speech is clear and appropriate. Normal level of consciousness. 5/5 strength in all extremities.
PSYCH Normal mood and affect. Judgement/competence is appropriate
Course
Orders/Labs/Results
Orders:
Orders
04/18/25 13:14
Electrocardiogram (*1) Urgent
Reason for Study: Chest Pain
04/18/25 13:26
Complete Blood Count/With Diff Urgent
Comprehensive Metabolic Panel Urgent
Magnesium Urgent
Troponin I Urgent
04/18/25 Dinner
Regular
At Your Request: Full Participation
04/18/25 15:36
0.9% Sodium Chloride 1000 ml [Nss] 1,000 ml IV BOLUS
04/18/25 16:34
Admit/Transfer Patient As Directed
Co-Sign Provider:
Level of Care: Inpatient admission
Assign to:: Telemetry
Physician / Group: Zohaib Kapoor
Diagnosis: Syncope, hyponatremia
Reason for Telemetry: Syncope
Date to Stop Telemetry: 04/20/25
Time to Stop Telemetry: 11:00
Reason for Hospitalization: New onset syncope and hyponatremia
Expected length of stay greater than two midnights?: Yes
ELOS- Estimated Length of Stay in days: 3
I certify the patient meets the requirements for IP care: Yes
PRN Pain Medication Management As Directed
May give lesser potent ordered pain med per pt: Yes
preference::
Protocol:: Medication orders for pain may be administered in a
manner that supports deferring to patient preference
when the pt is:
- Requesting an ordered lesser potent pain medication.
Least to most potent pain medications are defined
as: acetaminophen < NSAID < tramadol < opioids
(morphine, oxycodone, hydromorphone).
- Requesting a lesser dose of the same medication IF
ORDERED.
- Requesting a less intrusive route of administration
if both routes are prescribed by the provider (PO <
IV).
04/18/25 16:36
Code Status As Directed
Resuscitation Status: Full Code
04/18/25 16:47
Osmolality, Random Urine Urgent
Date Specimen was Collected: 04/18/25
Time Specimen was Collected: 16:46
Urinalysis Reflex To Culture Urgent
Date Specimen was Collected: 04/18/25
Time Specimen was Collected: 16:46
Urine Potassium Urgent
Date Specimen was Collected: 04/18/25
Time Specimen was Collected: 16:46
Urine Sodium Urgent
Date Specimen was Collected: 04/18/25
Time Specimen was Collected: 16:46
04/18/25 20:42
Acetaminophen [Tylenol] 650 mg PO Q4HPRN PRN
Albuterol [ProAIR HFA INHALER] 2 puff INH R Q6HPRN PRN sob
Bisacodyl [Dulcolax] 10 mg RECTAL [id number] PRN
Diphenhydramine [Benadryl] 25 mg PO QPM
Docusate W/Senna [Senokot-S] 1 tablet PO BIDPRN PRN
Ezetimibe [Zetia] 10 mg PO QPM
HydrALAZINE [Apresoline] 5 mg IV Q4HPRN PRN
Nebivolol HCl [Bystolic] 5 mg PO QPM
Ondansetron Injectable [Zofran] 4 mg IV Q6HPRN PRN
Polyethylene Glycol Powder [Miralax] 17 grams PO DAILYPRN PRN
fluticasone propionate 1 spray NASAL QPM
04/18/25 20:42
Activity As Directed
Activity Level: With Assistance
Orthostatic Vital Signs As Directed
Orthostatic VS Frequency: BID
Pneumatic Compression Sleeves As Directed
Type: Knee high
Vital Signs As Directed
Frequency: Per unit guidelines
DX Deep Vein Thrombosis Video Routine
04/18/25 21:00
Spironolactone [Aldactone] 12.5 mg PO BID
04/18/25 22:00
Melatonin 10 mg PO HS
04/19/25 06:00
EKG [Electrocardiogram (*1)] IN AM
Reason for Study: QTc Monitoring
Basic Metabolic Panel IN AM
Complete Blood Count/No Diff IN AM
Free T4 IN AM
LFT [Xmavd-Umyy-Nlghcyg] IN AM
TSH IN AM
04/19/25 08:00
Aspirin Chewable [Low Strength Aspirin] 81 mg PO DAILY
Pantoprazole [Protonix] 40 mg PO DAILY
04/20/25 11:00
DC Protocol for Telemetry ONCE
Abnormal Lab Results
04/18/25 04/18/25
13: 16:47
MCH 31.4 H pg
(27.0-31.0)
Absolute Monos (auto) 0.9 H 10^3/uL
(0.1-0.6)
Sodium 129 L mmol/L
(135-145)
Chloride 96 L mmol/L
(98-107)
BUN 20 H mg/dl
(7-17)
Glucose 102 H mg/dl
(70-99)
AST 51 H U/L
(14-36)
Urine Potassium 26.1 L mmol/L
(30-90)
04/18/25 13:26
04/18/25 13:26
Vital Signs
Initial and Last Documented VS:
Initial Vital Signs
Temp Pulse Resp BP Pulse Ox
98.2 F 69 15 181/94 99
04/18/25 13:18 04/18/25 13:18 04/18/25 13:18 04/18/25 13:18 04/18/25 13:18
Last Documented Vital Signs
Temp Pulse Resp BP Pulse Ox
97.5 F 75 18 97/85 99
04/18/25 20:34 04/18/25 20:34 04/18/25 20:34 04/18/25 20:34 04/18/25 20:43
*Pulse Oximetry
SaO2: 99
Oxygen Mode of Delivery: Room air
Patient hypoxic: no
*Critical Care Note
Total Time (30-74mins, 75-104mins- exclusive of procedures): Not Applicable
ED Attending Note
ED Attending Note
ED Attending Note:
Patient presents with multiple syncopal episodes in the setting of lupus dysautonomia, GI distress with hypovolemia and hyponatremia. Will admit for continued IV fluids, workup for hyponatremia and syncope
-
Portions of this chart may have been created with voice recognition software.� Occasional wrong word or��sound alike� substitutions may have occurred due to the inherent limitations of voice recognition software.
Discharge Plan
Departure
Patient Disposition: Admit
Date of Disposition: 04/18/25
Time of Disposition: 15:39
Presentation/result/management discussed w/ accepting MD/DO: Hospitalist
Discharge Problem:
Acute hyponatremia, Syncope
Interventions
Interventions:
*General Assessment Last Done: 04/18/25 13:18
*Neglect/Abuse Screening Last Done: 04/18/25 13:18
*ED- Fall Risk Assessment Last Done: 04/18/25 15:11
*Nursing Disposition Last Done: 04/18/25 20:25
ED- Cardiac Assessment Last Done: 04/18/25 15:18
ED- Neurological Assessment Last Done: 04/18/25 15:19
[2025-04-18] MEDS: NSS 1000 IV (16:42)
[2025-04-18 16:54] LABS: Urine Character Clear (Clear)
--- NOTE | 2025-04-18 17:14 | HPS.HSE ---
Family Physician
-
Family Physician: Drew Summers
Chief Complaint
-
Recurrent syncope, generalized weakness
History of Present Illness
Patient is 64-year-old female with past medical history of SLE on Benlysta, hyperlipidemia, history of dysautonomia, essential hypertension, gastroesophageal reflux disease, history of recurrent syncope, history of prolonged QTc, chronic
nausea/vomiting, POTS came to ER with recurrent syncope. Patient had previous history of syncope and has undergone workup by primary entry level accountant including tilt table test, patient has diagnosed for POTS/SLE dysautonomia. Patient stated of being
diagnosed as a neurocardiogenic syncope and has been able to control symptoms voluntarily somehow although for last week patient ended up having 4 syncopal episode. Usually happens when patient is up and about although has happened in the past when
patient is sitting or lying down as well. Sometimes associated with dizziness. Also patient have episodes of nausea and vomiting with it. He reported patient having diarrhea although patient denies of having any diarrhea for last few days.
Patient history of chronic abdominal nausea vomiting diarrhea was stemming from patient Plaquenil use. Patient is feeling much better from that perspective after being taken off of Plaquenil. Patient still is managed by hearing care practitioner and has been
started on Benlysta last month with patient getting two rounds. Beside this patient was feeling generally weak tired and came to ER for further evaluation. Denies of any ongoing chest pain/palpitation/shortness of breath/abdominal
pain/nausea/diarrhea/dysuria.
Medical History
Past Medical History
Past Medical History: Reports Other
Additional Past Medical History:
SLE on Benlysta, hyperlipidemia, history of dysautonomia, essential hypertension, gastroesophageal reflux disease, history of recurrent syncope, history of prolonged QTc, chronic nausea/vomiting, POTS
Past Surgical History: Reports Other
Social History
Tobacco: Non-smoker
Alcohol: None
Drug: None
Personal:
Living: Alone
Family History
Family History: Not pertinent
Allergies / Home Medications
Allergies reflects when Allergies were last updated in [facility].
Home Medications with original date entered in [facility]
Allergy/Medication List:
Allergies
Allergy/AdvReac Type Severity Reaction Status Date / Time
amoxicillin trihydrate (From Allergy severe Verified 04/26/24 15:38
Augmentin) diarrhea
codeine Allergy SOB, Verified 04/26/24 21:29
flushing,
rapid
heart rate
iron (Iron) Allergy Diarrhea Verified 04/26/24 15:38
lisinopril Allergy COUGH Verified 04/26/24 21:29
metformin Allergy DIARRHEA Verified 04/26/24 21:29
NSAIDS (Non-Steroidal Allergy Flushing, Verified 04/26/24 15:38
Anti-Inflamma (Nsaids) shortness
of breath,
rapid
heart
rate, rash
prednisone Allergy Shortness Verified 04/26/24 15:38
of Breath
Aiboawd-RCW-OqB Reductase Allergy myositis Verified 04/26/24 21:29
Inhibitor
valsartan Allergy Rash-higher Verified 04/26/24 21:29
doses
cause rash
'bunch of antibiotics' Allergy Diarrhea Uncoded 04/26/24 15:38
Enviornmental Allergy Sneezing, Uncoded 04/26/24 15:38
asthma
Gluten, dairy Allergy Diarrhea Uncoded 04/26/24 15:38
Home Medications
albuterol sulfate 90 mcg/actuation aerosol inhaler 2 puff inhalation R Q6HPRN PRN sob 04/26/24
aspirin 81 mg chewable tablet 81 mg PO DAILY 04/26/24
celecoxib 200 mg capsule 200 mg PO Q48H 04/26/24
cholecalciferol (vitamin D3) 25 mcg (1,000 unit) tablet (Vitamin D3) 25 mcg PO DAILY 04/26/24
diphenhydramine HCl 25 mg capsule (Benadryl) 25 mg PO QPM 04/26/24
ezetimibe 10 mg tablet 10 mg PO QPM 04/26/24
fluticasone propionate 50 mcg/actuation nasal spray,suspension 1 spray intranasal QPM 04/26/24
guaifenesin 600 mg tablet, extended release 12 hr (Mucinex) 600 mg PO QPM 04/26/24
melatonin 10 mg tablet 10 mg PO HS 04/26/24
nebivolol 2.5 mg tablet 5 mg PO QPM 04/26/24
pantoprazole 40 mg tablet,delayed release 40 mg PO DAILY 04/26/24
belimumab 120 mg intravenous solution (Benlysta) 480 mg IV Q2W 04/18/25
spironolactone 25 mg tablet 12.5 mg PO BID 04/18/25
Review of Systems
-
A 12 point ROS was completed and negative except as noted: Yes
Physical Exam
Vital Signs
Vital Signs
Temp Pulse Resp BP Pulse Ox
98.2 F 69 15 181/94 99
04/18/25 13:18 04/18/25 13:18 04/18/25 13:18 04/18/25 13:18 04/18/25 15:38
Physical Exam
General: Well Developed, Well Nourished and No Apparent Distress
HEENT: NormoCephalic, Moist mucous membranes and Atraumatic
Respiratory: Clear
Cardiac: S1/S2 and Regular Rhythm; No Murmur or Rub
GI: Soft, Non Tender, Non Distended and Normal Bowel Sounds; No Organomegaly
Rectal: Deferred by Provider
Musculoskeletal: No Clubbing, No Cyanosis and No Edema
Skin: No Rash
Neuro: Nonfocal/grossly intact
Laboratory Results
-
04/18/25 13:26
04/18/25 13:26
Laboratory Results
Total Bilirubin 0.5 mg/dl (0.2-1.3) 04/18/25 13:26
AST 51 U/L (14-36) H 04/18/25 13:26
ALT 29 U/L (0-35) 04/18/25 13:26
Alkaline Phosphatase 97 U/L (38-126) 04/18/25 13:26
Troponin I < 0.012 ng/ml 04/18/25 13:26
Impression/Plan
-
1. Acute hyponatremia
- Last known sodium of 135-year back. Today sodium of 129
- Check urine sodium and urine
- Patient denies of having any overt vomiting/diarrhea issues.
- Check TSH/free T4 level.
- Got started on Benlysta last month, side effect profile reviewed does not cause hyponatremia.
- Got NS 1 L IV fluid in ER, follow-up sodium level
- Will involve nephrology if not improved
2. SLE related dysautonomia
POTS syndrome
Neurocardiogenic syncope
History of prolonged QTc
- Patient had extensive workup in the past and has been diagnosed for SLE dysautonomia
- EKG showing normal QTc. Monitor on telemetry
- Echocardiogram last year did not show any major valvular issues
- Monitor orthostatic vitals
3. Essential hypertension -uncontrolled
- Patient was noted to be hypertensive in ER, improved without any further intervention
- Continue home medication of Nebivolol and Aldactone
- IV hydralazine ordered for systolic blood pressure greater than 150
4. Chronic nausea/vomiting
- Usually associated with syncope likely vagal in nature
- As needed Zofran ordered for now, will need to be held if QTc gets prolonged
5. AST elevation
- No new abdominal complain
- Follow-up LFT in the morning, will consider ultrasound
6. Hyperlipidemia
- Maintain on ezetimibe
7. GERD
-Maintained on pantoprazole
DVT prophylaxis -SCD
Full code
Total time spent : 78 mins
I personally saw and examined the patient.
I have reviewed all diagnostic interpretations and treatment plans as written.
Time includes patient management by me, time spent at the patients bedside, time to review lab and imaging results, discussing patient care, documentation in the medical record, and time spent with the family or caregiver and discussing care plan
with RN/Consultants.
[2025-04-18] MEDS: ALDACTONE 12.5 MG PO (21:29)
[2025-04-18] MEDS: BENADRYL 25 MG PO (21:29)
[2025-04-18] MEDS: ZETIA 10 MG PO (21:29)
[2025-04-18] MEDS: BYSTOLIC 5 MG PO (21:29)
[2025-04-18] MEDS: MELATONIN 10 MG PO (21:30)
[2025-04-18 21:57] LABS: Magnesium 2.1 mg/dl (1.6-2.3)
[2025-04-18] MEDS: MAGNESIUM OXIDE 400 MG PO (22:23)
[2025-04-19 03:00] VITALS: BP 140/60
[2025-04-19 07:00] VITALS: BP 118/58
[2025-04-19] MEDS: PROTONIX 40 MG PO (07:50)
[2025-04-19] MEDS: ALDACTONE 12.5 MG PO (07:50)
[2025-04-19] MEDS: LOW STRENGTH ASPIRIN 81 MG PO (07:50)
[2025-04-19 08:09] LABS: Hematocrit 40.2 % (37.0-47.0); Hemoglobin 13.8 g/dL (12.0-16.0); Mean Corp Hgb Conc. 34.3 g/dL (33.0-37.0); Mean Corpuscular Volume 92.2 fL (81.0-99.0); Platelet Count 286 10^3/uL (130-400); Red Cell Dist. Width 11.9 % (11.5-14.5)
[2025-04-19 08:52] LABS: ALT (SGPT) 25 U/L (0-35); AST (SGOT) 40 U/L (14-36); Albumin 3.9 g/dl (3.5-5.0); Alkaline Phosphatase 83 U/L (38-126); Blood Urea Nitrogen 17 mg/dl (7-17); Calcium 9.7 mg/dl (8.4-10.2); Carbon Dioxide 25 mmol/L (22-30); Chloride 103 mmol/L (98-107); Estimated Creatinine Clearance 70 ml/min; Glucose 95 mg/dl (70-99); Potassium 4.6 mmol/L (3.5-5.1); Sodium 133 mmol/L (135-145); Total Protein 6.1 g/dl (6.3-8.2); eGFR > 60.00
[2025-04-19 09:19] LABS: TSH 3.65 uIU/ml (0.47-4.68)
--- NOTE | 2025-04-19 09:55 | CM ---
Chart reviewed. Met with pt bedside. IA completed. IMM given. Pt lives alone in 2 story home. Step dtr lives close by and assist pt as needed. Avoids climbing stairs to second floor.Lives primarily on the 1st floor. There are 4 steps at the home
entrance; rails in place. Has BR on the 1st floor. Pt states she is independent in ADLs and IADLs. Very firm that she wants to stay in her home as long as possible. NO hx HC, SNF. DME: walkder, rollator, wheelchair, grab bars in BR commode rails.
Confirmed PCP, Rx, Insurance, drug coverage. No insecurities identified.
Being discharged today. Stated she will be transported home by a friend after her infusion appt at noon today.
PCP: Drew Rosales
Rx: [facility] / [place]
Plan - Home with no needs.
[2025-04-19 11:00] VITALS: BP 133/74
--- NOTE | 2025-04-19 12:18 | W.DCSUMMARY ---
Discharge Summary
Discharge Data
Date of Admission: 04/18/25
Date of Discharge: 04/19/25
-
Pending Results: No
Hospital Course
Discharging Physician : Dr Zohaib Kapoor
Disposition : To home
Primary care physician : Dr. Drew Summers
Principal Discharge diagnosis :
Acute hyponatremia
Generalized weakness
Chronic Discharge diagnosis :
Systemic lupus erythematosus on Benlysta
Muscle cramping
Recurrent syncope
Dysautonomia/positional orthostasis tachycardia syndrome
History of prolonged QTc
Recurrent nausea and vomiting
Essential hypertension
Gastroesophageal reflux disease
Physical examination:
HEENT: No pallor, cyanosis,
RESPIRATORY: Lungs clear to auscultation.
CVS: S1, S2 normal. RRR. No murmur.
ABDOMEN: Soft, non-tender. No distension. BS+/normal.
EXTREMITIES: No peripheral edema.
COMPUTATIONAL MATHEMATICIAN: AOx3. No focal deficits.
Hospital Course :
Patient is a 64-year-old female with a worsening past medical history came to ER with new onset of generalized weakness and recurrent syncope. Patient have history of diagnosis of SLE related dysautonomia and recurrent syncope for many years
although patient felt this was worse for last few days. Patient have usually associated nausea vomiting with syncope. On evaluation in the ER patient was found to be hyponatremic with sodium down to 129 from baseline of normal ER back. Urine
electrolytes and osmolality were checked although were collected after patient was provided IV normal saline in ER and not helpful. Patient had improvement in hyponatremia with blood sodium coming up to 133 next day. Patient was subjectively
feeling better and has been provided a follow-up prescription for blood work. No current medication explaining patient hyponatremia including patient newly started Benlysta. Patient to be monitored on outpatient basis for further recurrence and
may require nephrology evaluation if needed.
Also on side note patient had minimal AST elevation of 51 at admit which was already trending down on follow-up and was at upper normal of 40 on discharge today.
Important imaging findings :
None
Procedure findings :
None
Discharge Plan
-
Patient Disposition: Home (Routine Discharge)
Discharge Diagnosis/Procedures: Acute hyponatremia, Generalized weakness, Recurrent syncope
Condition: Fair
Diet: Regular
Activity: As tolerated
Driving Restrictions: No driving for 24 hours
Bathing Restrictions: OK to Shower
Blood Work: BMP in1 week
Referrals:
Drew Summers MD [Family Provider, Family Practice] - in one week
Prescriptions:
Continued
celecoxib 200 mg Capsule
200 mg PO Q48H
pantoprazole 40 mg Tablet,Delayed Release (Dr/Ec)
40 mg PO DAILY
diphenhydramine HCl [Benadryl] 25 mg Capsule
25 mg PO QPM
aspirin 81 mg Tablet,Chewable
81 mg PO DAILY
albuterol sulfate 90 mcg/actuation Hfa Aerosol Inhaler
2 puff INHALATION R Q6HPRN PRN (Reason: sob)
fluticasone propionate 50 mcg/actuation [place],Suspension
1 spray INTRANASAL QPM
ezetimibe 10 mg Tablet
10 mg PO QPM
cholecalciferol (vitamin D3) [Vitamin D3] 25 mcg (1,000 unit) Tablet
25 mcg PO DAILY
nebivolol 2.5 mg Tablet
5 mg PO QPM
Patient Comments:
04/26/24: Patient can adjust dosage depending on blood pressure
melatonin 10 mg Tablet
10 mg PO HS
guaifenesin [Mucinex] 600 mg Tablet Extended Release 12hr
600 mg PO QPM
Benlysta 120 mg Recon Soln
480 mg IV Q2W
Rx Instructions:
pt unsure of dose
spironolactone 25 mg tablet
12.5 mg PO BID
magnesium Tablet
325 tab PO HS
Discharge Orders:
Discharge Patient (As Directed); Ordered 04/19/25
Ordered By: Zohaib Kapoor
Discharge Date and Time
Print Language: UPPER SORBIAN
== END 2025-04-19 14:42 | disposition home or self-care (01) | DRG 641 ==
LOC: 4 WEST ACU 17:54
PROVIDERS: Emergency Medicine; ADMITTING PHYSICIAN Hospitalist; EMERGENCY PHYSICIAN Emergency Medicine; FAMILY PHYSICIAN Family Medicine
DX: E87.1 Hypo-osmolality and hyponatremia (principal); G90.A Postural orthostatic tachycardia syndrome [POTS]; M32.9 Systemic lupus erythematosus, unspecified; G90.1 Familial dysautonomia [Riley-Day]; I10 Essential (primary) hypertension; K21.9 Gastro-esophageal reflux disease without esophagitis; E78.5 Hyperlipidemia, unspecified; R55 Syncope and collapse; R74.01 Elevation of levels of liver transaminase levels; E86.1 Hypovolemia; Z79.82 Long term (current) use of aspirin; Z79.899 Other long term (current) drug therapy
CPT/HCPCS: 80053; 81003; 82248; 83735; 83935; 84133; 84300; 84439; 84443; 84484; 85025; 85027; 93005; 99285

== ENCOUNTER → 2025-04-26 09:05 | Outpatient (REF) | payer MEDICARE, SELFPAY ==
[2025-04-26 10:02] LABS: Hematocrit 42.5 % (37.0-47.0); Hemoglobin 14.8 g/dL (12.0-16.0); Mean Corp Hgb Conc. 34.8 g/dL (33.0-37.0); Mean Corpuscular Volume 91.8 fL (81.0-99.0); Nucleated Red Blood Cells % 0 %; Platelet Count 327 10^3/uL (130-400); Red Cell Dist. Width 11.8 % (11.5-14.5)
[2025-04-26 11:31] LABS: Blood Urea Nitrogen 20 mg/dl (7-17); Glucose 91 mg/dl (70-99)
[2025-04-26 11:32] LABS: ALT (SGPT) 31 U/L (0-35); AST (SGOT) 50 U/L (14-36); Albumin 4.7 g/dl (3.5-5.0); Alkaline Phosphatase 98 U/L (38-126); Calcium 10.1 mg/dl (8.4-10.2); Carbon Dioxide 26 mmol/L (22-30); Chloride 100 mmol/L (98-107); HDL Cholesterol 87 mg/dl; LDL Cholesterol, Calculated 28 mg/dl; Potassium 4.7 mmol/L (3.5-5.1); Sodium 132 mmol/L (135-145); Total Protein 7.5 g/dl (6.3-8.2); Very Low Density Lipoprotein 17 mg/dl (0-30); eGFR > 60.00
[2025-04-26 14:23] LABS: C-Reactive Protein 12.00 mg/L (0.0-10.00)
== END ==
LOC: REG 09:05
PROVIDERS: ATTENDING PHYSICIAN Internal Medicine Rheumatology; FAMILY PHYSICIAN Family Medicine; OTHER PHYSICIAN Internal Medicine Cardiovascular Disease
DX: M32.9 Systemic lupus erythematosus, unspecified (principal); R93.1 Abnormal findings on diagnostic imaging of heart and coronary circulation; E78.00 Pure hypercholesterolemia, unspecified
CPT/HCPCS: 36415; 80053; 80061; 82550; 82787; 85025; 85652; 86140; 86160

== ENCOUNTER → 2025-04-27 12:31 | Outpatient (REF) | payer MEDICARE, SELFPAY ==
[2025-04-27 13:23] LABS: Urine Character Clear (Clear)
== END ==
LOC: REG 12:31
PROVIDERS: ATTENDING PHYSICIAN Internal Medicine Rheumatology; FAMILY PHYSICIAN Family Medicine
DX: M32.9 Systemic lupus erythematosus, unspecified (principal)
CPT/HCPCS: 81003; 82570; 84156

== ENCOUNTER 2025-05-05 16:03 | Emergency (ER) | payer MEDICARE, SELFPAY ==
[2025-05-05] VITALS (7 sets, daily range): BP systolic 110–152; BP diastolic 49–89; BMI 35.1
[2025-05-05 16:30] LABS: Hematocrit 41.5 % (37.0-47.0); Hemoglobin 14.5 g/dL (12.0-16.0); Mean Corp Hgb Conc. 34.9 g/dL (33.0-37.0); Mean Corpuscular Volume 92.4 fL (81.0-99.0); Nucleated Red Blood Cells % 0 %; Platelet Count 321 10^3/uL (130-400); Red Cell Dist. Width 11.8 % (11.5-14.5)
[2025-05-05 16:54] LABS: ALT (SGPT) 27 U/L (0-35); AST (SGOT) 55 U/L (14-36); Albumin 4.4 g/dl (3.5-5.0); Alkaline Phosphatase 91 U/L (38-126); Blood Urea Nitrogen 22 mg/dl (7-17); Calcium 9.9 mg/dl (8.4-10.2); Carbon Dioxide 29 mmol/L (22-30); Chloride 100 mmol/L (98-107); Glucose 100 mg/dl (70-99); Potassium 3.6 mmol/L (3.5-5.1); Sodium 134 mmol/L (135-145); Total Protein 6.9 g/dl (6.3-8.2); eGFR > 60.00
[2025-05-05 18:12] LABS: Magnesium 1.7 mg/dl (1.6-2.3)
[2025-05-05] MEDS: NSS 1000 IV (18:36)
[2025-05-05] MEDS: ZOFRAN 4 MG IV (18:37)
[2025-05-05 19:54] LABS: Urine Character Clear (Clear)
[2025-05-05 20:03] LABS: Urine Red Blood Cell 0-2 /HPF (0-2); Urine Squamous Cell >30 /LPF (Few)
[2025-05-05 20:04] LABS: Urine White Cell 0-2 /HPF (0-5)
--- NOTE | 2025-05-05 23:17 | ED.GENMED ---
History of Present Illness
<Dakota Bazan Jr., PA-C - Last Filed: 05/07/25 11:22>
General
Chief Complaint: Abdominal Symptoms
Source: patient
Exam Limitations: none
Time Seen by Provider: 05/05/25 17:35
Nursing documentation reviewed up to this point in time: agreed with
History of Present Illness
History of Present Illness:
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 She claims that she has been feeling lightheaded she has had
intermittent diarrhea intermittent cramping of all extremities occasionally the abdomen occasionally the chest as well as intermittent vomiting. She does have chronic issues in this regard symptoms have been ongoing for multiple months. She thinks
this may have been worse over the past day or so.
Past History
<Dakota Bazan Jr., PA-C - Last Filed: 05/07/25 11:22>
Past History
ED Past Medical History: Other (NEUROCARDIOGENIC SYNCOPE, asthma)
Social History
Tobacco: Non-smoker
Alcohol: None
Drug: None
Personal:
Living: with family
Review of Systems
<Dakota Bazan Jr., PA-C - Last Filed: 05/07/25 11:22>
Review of Systems
Allergies reviewed?: Yes
All Other Systems: ROS reviewed and negative except as documented in HPI and ROS
Phy Exam
<Dakota Bazan Jr., PA-C - Last Filed: 05/07/25 11:22>
Physical Exam
Physical Exam:
GENERAL: Alert , in no apparent distress
EYE: pupils equal and reactive
NECK: Supple, no significant adenopathy.
ENT: o/p clr, mmm.
CARDIAC: Regular rate and rhythm .
LUNGS: Clear breath sounds bilaterally, no acute respiratory distress, no wheezes/rales/rhonchi
ABDOMEN: Vague abdominal pain diffusely no specific area that was prominent. No guarding.
NEUROLOGICAL: Alert and oriented, no focal neuro deficits
SKIN: Warm and dry, skin intact.
MUSCULOSKELETAL: No edema, well perfused.
PSYCH: Normal and appropriate interaction.
Course
<Dakota Bazan Jr., PA-C - Last Filed: 05/07/25 11:22>
Orders/Labs/Results
Orders:
Orders
05/05/25 16:20
CMP [Comprehensive Metabolic Panel] Urgent
Complete Blood Count/With Diff Urgent
Magnesium Urgent
Comment: ADD ON
TSH Reflex To Free T4 Urgent
Comment: ADD ON
05/05/25 17:37
Add On- LAB Urgent
Tests Added?: magnesium, tsh free t4
EKG [Electrocardiogram (*1)] Urgent
Reason for Study: Fatigue / Weakness
EKG- Treatment ONCE
05/05/25 18:05
CT Abd/Pel (IV only)-DH only Urgent
Comment:
Reason For Exam: diffuse abd pain
05/05/25 18:06
0.9% Sodium Chloride 1000 ml [Nss] 1,000 ml IV BOLUS
05/05/25 18:11
Ondansetron Injectable [Zofran] 4 mg IV NOW STA
05/05/25 19:38
Urinalysis Reflex To Culture Urgent
Date Specimen was Collected: 05/05/25
Time Specimen was Collected: 18:07
Urine Microscopic Reflex Cult Urgent
Urine Culture Urgent
JOSE R Source: U
Specimen Description:
Date Specimen was Collected: 05/05/25
Time Specimen was Collected: 18:07
05/05/25 22:49
US Abdomen Complete/Upper Urgent
Comment:
Reason For Exam: abnormal CT
Abnormal Lab Results
05/05/25 05/05/25
16:20 19:38
MCH 32.3 H pg
(27.0-31.0)
Absolute Monos (auto) 0.9 H 10^3/uL
(0.1-0.6)
Monocytes % 11.4 H %
(1.7-9.3)
Sodium 134 L mmol/L
(135-145)
BUN 22 H mg/dl
(7-17)
Glucose 100 H mg/dl
(70-99)
AST 55 H U/L
(14-36)
Urine Bacteria (Reflex) Moderate A
(Negative)
Urine Albumin (Reflex) 1+ A
(Neg - Trace)
05/05/25 16:20
05/05/25 16:20
Vital Signs
Initial and Last Documented VS:
Initial Vital Signs
Temp Pulse Resp BP Pulse Ox
97.9 F 70 16 152/89 98
05/05/25 16:12 05/05/25 16:12 05/05/25 16:12 05/05/25 16:12 05/05/25 16:12
Last Documented Vital Signs
Temp Pulse Resp BP Pulse Ox
97.7 F 65 12 119/56 100
05/05/25 23:40 05/06/25 01:04 05/06/25 01:04 05/06/25 01:04 05/05/25 23:29
<Aris Magana PA-C - Last Filed: 05/06/25 02:09>
Orders/Labs/Results
Orders:
Orders
05/05/25 16:20
CMP [Comprehensive Metabolic Panel] Urgent
Complete Blood Count/With Diff Urgent
Magnesium Urgent
Comment: ADD ON
TSH Reflex To Free T4 Urgent
Comment: ADD ON
05/05/25 17:37
Add On- LAB Urgent
Tests Added?: magnesium, tsh free t4
EKG [Electrocardiogram (*1)] Urgent
Reason for Study: Fatigue / Weakness
EKG- Treatment ONCE
05/05/25 18:05
CT Abd/Pel (IV only)-DH only Urgent
Comment:
Reason For Exam: diffuse abd pain
05/05/25 18:06
0.9% Sodium Chloride 1000 ml [Nss] 1,000 ml IV BOLUS
05/05/25 18:11
Ondansetron Injectable [Zofran] 4 mg IV NOW STA
05/05/25 19:38
Urinalysis Reflex To Culture Urgent
Date Specimen was Collected: 05/05/25
Time Specimen was Collected: 18:07
Urine Microscopic Reflex Cult Urgent
Urine Culture Urgent
JOSE R Source: U
Specimen Description:
Date Specimen was Collected: 05/05/25
Time Specimen was Collected: 18:07
05/05/25 22:49
US Abdomen Complete/Upper Urgent
Comment:
Reason For Exam: abnormal CT
Abnormal Lab Results
05/05/25 05/05/25
16:20 19:38
MCH 32.3 H pg
(27.0-31.0)
Absolute Monos (auto) 0.9 H 10^3/uL
(0.1-0.6)
Monocytes % 11.4 H %
(1.7-9.3)
Sodium 134 L mmol/L
(135-145)
BUN 22 H mg/dl
(7-17)
Glucose 100 H mg/dl
(70-99)
AST 55 H U/L
(14-36)
Urine Bacteria (Reflex) Moderate A
(Negative)
Urine Albumin (Reflex) 1+ A
(Neg - Trace)
05/05/25 16:20
05/05/25 16:20
Vital Signs
Initial and Last Documented VS:
Initial Vital Signs
Temp Pulse Resp BP Pulse Ox
97.9 F 70 16 152/89 98
05/05/25 16:12 05/05/25 16:12 05/05/25 16:12 05/05/25 16:12 05/05/25 16:12
Last Documented Vital Signs
Temp Pulse Resp BP Pulse Ox
97.7 F 65 12 119/56 100
05/05/25 23:40 05/06/25 01:04 05/06/25 01:04 05/06/25 01:04 05/05/25 23:29
<Dakota Bazan Jr., PA-C - Last Filed: 05/07/25 11:22>
MDM/Problems Addressed
MDM/Problems Addressed:
64-year-old female presenting to the emergency department today with multiple concerns including lightheadedness intermittent diarrhea intermittent vomiting some cramping of all extremities and occasionally in the upper abdomen. On arrival here EKG
without emergent findings labs showing slight dehydration she was given fluids slight elevation of AST that this has been elevated in the past to similar levels other labs unremarkable no white count vital signs normal. CT scan was equivocal for
potential acute cholecystitis considering this plan to get ultrasound for further assessment.
<Dakota Bazan Jr., PA-C - Last Filed: 05/07/25 11:22>
*Pulse Oximetry
SaO2: 96
Oxygen Mode of Delivery: Room air
<Aris Magana PA-C - Last Filed: 05/06/25 02:09>
*Radiology
Radiology exam reviewed: radiology read reviewed
*Pulse Oximetry
Patient hypoxic: no
*Critical Care Note
Total Time (30-74mins, 75-104mins- exclusive of procedures): Not Applicable
<JORDAN Mcgarry Last Filed: 05/06/25 02:09>
Patient Management
Escalation/DeEscalation of care consider admission/obs:
Patient received in signout pending US abd results:
US shows multiple mobile gallstones within the gallbladder but there is no edema/Pericholecystic fluid or findings to suggest acute cholecystitis. Patient's symptoms are not consistent with typical cholecystitis presentation. She ultimately wishes
to be discharged home. She notes that she is feeling improved since coming to the ER especially with the fluids. Information for general surgery was provided. We discussed low-fat/low residue diet. Patient and family expressed understanding.
ED Attending Note
<Dakota Bazan Jr., JORDAN - Last Filed: 05/07/25 11:22>
-
Portions of this chart may have been created with voice recognition software.� Occasional wrong word or��sound alike� substitutions may have occurred due to the inherent limitations of voice recognition software.
Discharge Plan
Departure
Patient Disposition: Home (Routine Discharge)
Date of Disposition: 05/06/25
Time of Disposition: 01:34
Patient with high blood pressure during this ER visit?: Yes
Discharge Problem:
Abdominal pain, Nausea and vomiting, Asymptomatic gallstones
Instructions: Gallstones - ED (DC)
Prescriptions:
No Action
celecoxib 200 mg Capsule
200 mg PO Q48H
pantoprazole 40 mg Tablet,Delayed Release (Dr/Ec)
40 mg PO DAILY
diphenhydramine HCl [Benadryl] 25 mg Capsule
25 mg PO HS
albuterol sulfate 90 mcg/actuation Hfa Aerosol Inhaler
2 puff INHALATION R Q6HPRN PRN (Reason: sob)
fluticasone propionate 50 mcg/actuation [place],Suspension
1 spray INTRANASAL QPM
ezetimibe 10 mg Tablet
10 mg PO QPM
nebivolol 2.5 mg Tablet
5 mg PO QPM
Patient Comments:
04/26/24: Patient can adjust dosage depending on blood pressure
melatonin 10 mg Tablet
10 mg PO HS
guaifenesin [Mucinex] 600 mg Tablet Extended Release 12hr
600 mg PO QPM
Benlysta 120 mg Recon Soln
480 mg IV Q4W
magnesium Tablet
325 tab PO HS
spironolactone 25 mg Tablet
25 mg PO BID
aspirin 81 mg Tablet
81 mg PO DAILY
Praluent Pen 75 mg/mL Pen Injector
75 mg SC Q2W
Patient Comments:
pt did not have last dose - on hold due to cramping throughout body
vitamin D3-vitamin K2 125 mcg (5,000 unit)-100 mcg Capsule
2 cap PO DAILY
Referrals:
Drew Summers MD [Family Provider, Family Practice]
Pablo Helm MD [Active, Surgical]
Interventions
Interventions:
*Risk Screen - Suicide Last Done: 05/05/25 16:12
*General Assessment Last Done: 05/05/25 16:12
*Neglect/Abuse Screening Last Done: 05/05/25 16:12
*ED- Fall Risk Assessment Last Done: 05/05/25 16:12
*ED COVID-19 Vaccine History Last Done: 05/05/25 16:12
*Nursing Disposition Last Done: 05/06/25 01:41
VY-Mcgefk-Rfvfurmcpj Assessment Last Done: 05/05/25 23:45
Discharge Date and Time
Discharge Date/Time: 05/06/25 01:41
Print Language: LAO
--- NOTE | 2025-05-05 23:52 | EDRN ---
Pt has had couple nights of vomiting which provoked diarrhea. Pt has cramping throughout her body, most recently underneath her breasts. Cramping is intermittent and changes location. Pt did not have her last dose of Praluent because there was
concern it was causing cramping. Pt's last episode of vomiting and diarrhea was last night. Pt denies nausea now but says she was medicated for nausea. Pt explains she gets overheated and when her body calms down, she gets chills. Pt had 1 day
of chest pain (May 03) associated with sob and dizziness, none since. Pt denies cp/sob now, urinary symptoms, fever/cough.
[2025-05-06 01:04] VITALS: BP 119/56
== END 2025-05-06 01:41 | disposition home or self-care (01) ==
LOC: EMR 16:03
PROVIDERS: Physician Assistant; EMERGENCY PHYSICIAN Emergency Medicine; FAMILY PHYSICIAN Family Medicine
DX: R10.9 Unspecified abdominal pain (principal); R11.2 Nausea with vomiting, unspecified; K80.20 Calculus of gallbladder without cholecystitis without obstruction; R42 Dizziness and giddiness; R19.7 Diarrhea, unspecified; R03.0 Elevated blood-pressure reading, without diagnosis of hypertension; N18.9 Chronic kidney disease, unspecified; J45.909 Unspecified asthma, uncomplicated
CPT/HCPCS: 99284; 96374; 96361; 74177; 76700; 80053; 81003; 81015; 83735; 84443; 85025; 87086; 93005; Q9967

== ENCOUNTER 2025-05-12 19:27 | Emergency (ER) | payer MEDICARE, SELFPAY ==
[2025-05-12 19:33] VITALS: BP 159/89
[2025-05-12 21:57] VITALS: BMI 33.4
[2025-05-12 22:01] VITALS: BP 131/78
--- NOTE | 2025-05-12 22:04 | ED.GENMED ---
ED Provider Triage
<Damon Worrell MD, Resident - Last Filed: 05/13/25 01:05>
-
Patient seen by provider in Triage?: Seen in Triage
History of Present Illness
<Damon Worrell MD, Resident - Last Filed: 05/13/25 01:05>
General
Chief Complaint: Abdominal Pain
Source: patient
Exam Limitations: none
Time Seen by Provider: 05/12/25 22:03
History of Present Illness
History of Present Illness:
64 y/o female with abdominal pain since this morning 8 am. She describes the location as epigastric, constant in duration, moderate to severe intensity, sharp in character, and mostly localized to the right upper quadrant, associated with 4 episodes
of vomiting/ nausea, aggravated on eating meals. Previously had similar symptoms last week and had a ultrasound of the abdomen on 05/05/2025 which showed gallstones. No diarrhea, constipation, weight loss, chills, fever. No alcohol, smoking, drugs.
Past History
<Damon Worrell MD, Resident - Last Filed: 05/13/25 01:05>
Past History
ED Past Medical History: Other (NEUROCARDIOGENIC SYNCOPE, asthma)
Social History
Tobacco: Non-smoker
Alcohol: None
Drug: None
Personal:
Living: with family
Review of Systems
<Damon Worrell MD, Resident - Last Filed: 05/13/25 01:05>
Review of Systems
All Other Systems: ROS reviewed and negative except as documented in HPI and ROS
Constitutional: Denies night sweats
Respiratory: Denies cough
Cardiac: Denies chest pain or diaphoresis
: Reports no symptoms
Musculoskeletal: Reports no symptoms
Phy Exam
<Damon Worrell MD, Resident - Last Filed: 05/13/25 01:05>
General Physical Exam
General Presentation: well appearing and mild distress
General Skin: warm and dry
General Habitus: obese
General Mental: alert
Cardiovascular Exam
Cardiovascular Exam: regular rate/rhythm, no edema, no gallop, no JVD, no murmur and normal peripheral pulses
Pulmonary Exam
Pulmonary Exam: lungs clear and no respiratory distress
Gastrointestinal Exam
Gastrointestinal Exam: normal bowel sounds, soft, non distended and tender (Diffuse abdominal tenderness)
Skin Exam
Skin Exam: normal color and warm/dry
Psychiatric Exam
Psychiatric Exam: normal mood/affect
Course
<Damon Worrell MD, Resident - Last Filed: 05/13/25 01:05>
Orders/Labs/Results
Orders:
Orders
05/12/25 22:10
Complete Blood Count/With Diff Urgent
Comprehensive Metabolic Panel Urgent
Lipase Urgent
05/12/25 22:36
US Abdomen Limited Urgent
Reason For Exam: diffuse abdominal ultrasound
05/12/25 23:30
0.9% Sodium Chloride 1000 ml [Nss] 1,000 ml IV Per Protocol mls/hr
05/13/25 00:11
Urinalysis Reflex To Culture Urgent
Date Specimen was Collected: 05/13/25
Time Specimen was Collected: 00:09
Abnormal Lab Results
05/12/25 05/13/25
22:10 00:11
WBC 13.7 H 10^3/uL
(4.8-10.8)
MCH 32.3 H pg
(27.0-31.0)
Abs Immat Gran (auto) 0.1 H 10^3/uL
(0-0.05)
Absolute Neuts (auto) 10.7 H 10^3/uL
(1.4-6.5)
Absolute Monos (auto) 0.9 H 10^3/uL
(0.1-0.6)
Neutrophils % 77.9 H %
(42.2-75.2)
Lymphocytes % 14.4 L %
(20.5-51.1)
Sodium 134 L mmol/L
(135-145)
BUN 21 H mg/dl
(7-17)
Glucose 115 H mg/dl
(70-99)
Calcium 10.5 H mg/dl
(8.4-10.2)
Urine Ketones 1+ A
(Negative)
05/12/25 22:10
05/12/25 22:10
Vital Signs
Initial and Last Documented VS:
Initial Vital Signs
Temp Pulse Resp BP Pulse Ox
97.5 F 75 16 159/89 97
05/12/25 19:33 05/12/25 19:33 05/12/25 19:33 05/12/25 19:33 05/12/25 19:33
Last Documented Vital Signs
Temp Pulse Resp BP Pulse Ox
97.5 F 75 16 126/62 100
05/12/25 19:33 05/12/25 19:33 05/12/25 19:33 05/13/25 00:08 05/13/25 00:15
<Devan Welch, DO - Last Filed: 05/12/25 23:54>
Orders/Labs/Results
Orders:
Orders
05/12/25 22:10
Complete Blood Count/With Diff Urgent
Comprehensive Metabolic Panel Urgent
Lipase Urgent
05/12/25 22:36
US Abdomen Limited Urgent
Reason For Exam: diffuse abdominal ultrasound
05/12/25 23:30
0.9% Sodium Chloride 1000 ml [Nss] 1,000 ml IV Per Protocol mls/hr
05/13/25 00:11
Urinalysis Reflex To Culture Urgent
Date Specimen was Collected: 05/13/25
Time Specimen was Collected: 00:09
Abnormal Lab Results
05/12/25 05/13/25
22:10 00:11
WBC 13.7 H 10^3/uL
(4.8-10.8)
MCH 32.3 H pg
(27.0-31.0)
Abs Immat Gran (auto) 0.1 H 10^3/uL
(0-0.05)
Absolute Neuts (auto) 10.7 H 10^3/uL
(1.4-6.5)
Absolute Monos (auto) 0.9 H 10^3/uL
(0.1-0.6)
Neutrophils % 77.9 H %
(42.2-75.2)
Lymphocytes % 14.4 L %
(20.5-51.1)
Sodium 134 L mmol/L
(135-145)
BUN 21 H mg/dl
(7-17)
Glucose 115 H mg/dl
(70-99)
Calcium 10.5 H mg/dl
(8.4-10.2)
Urine Ketones 1+ A
(Negative)
05/12/25 22:10
05/12/25 22:10
Vital Signs
Initial and Last Documented VS:
Initial Vital Signs
Temp Pulse Resp BP Pulse Ox
97.5 F 75 16 159/89 97
05/12/25 19:33 05/12/25 19:33 05/12/25 19:33 05/12/25 19:33 05/12/25 19:33
Last Documented Vital Signs
Temp Pulse Resp BP Pulse Ox
97.5 F 75 16 126/62 100
05/12/25 19:33 05/12/25 19:33 05/12/25 19:33 05/13/25 00:08 05/13/25 00:15
<Damon Worrell MD, Resident - Last Filed: 05/13/25 01:05>
MDM/Problems Addressed
Differential Diagnosis Includes:
Cholelithiasis, cholecystitis, colitis, pancreatitis, renal colic
MDM/Problems Addressed:
64 y/o F with generalized abdominal pain associated with N/V. Diffuse tenderness seen on physical exam.
CMP- Benign,
CBC- Increased WBC of 13.7 most likely reactive, patient afebrile
Started patient on normal saline 1L
ultrasound of the abdomen- shows cholelithiasis with no gallbladder wall thickening , pericholecystic edema, obstruction or biliary dilatation
Will schedule a f/u visit with general surgery Dr. Garcia in 2-3 days.
<Damon Worrell MD, Resident - Last Filed: 05/13/25 01:05>
*Pulse Oximetry
SaO2: 97
Oxygen Mode of Delivery: Room air
Patient hypoxic: no
*Critical Care Note
Total Time (30-74mins, 75-104mins- exclusive of procedures): Not Applicable
ED Attending Note
<Damon Worrell MD, Resident - Last Filed: 05/13/25 01:05>
-
Portions of this chart may have been created with voice recognition software.� Occasional wrong word or��sound alike� substitutions may have occurred due to the inherent limitations of voice recognition software.
<Devan Welch DO - Last Filed: 05/12/25 23:54>
ED Attending Note
Patient seen and examined by attending physician: Yes
I performed a history and physical exam of patient and discussed management with resident, I reviewed resident's note and agree with documented findings and plan of care.: Yes
ED Attending Note:
Note:
CHIEF COMPLAINT(S)
Pain under the right ribcage extending to the back, accompanied by vomiting.
HISTORY OF PRESENT ILLNESS
The patient is a 64-year-old female who presented with pain under the right ribcage that extends across to the back. The pain began this morning upon awakening and has progressively worsened throughout the day. She describes the pain as constant,
with no relief from various interventions including hot water bottles, changing positions, breathing exercises, and varying water intake. At 4 PM, the patient began vomiting but did not report any blood in the vomitus. She has experienced similar
discomfort in the past, with severe muscle cramping in the area, but noted that this pain is more intense and persistent.
The patient noted a history of gallstones identified in a previous ultrasound, which raises the concern of a potential new obstruction. It was suggested that todays ultrasound would be compared to the previous one to assess for any changes and
potential requirement for cholecystectomy if gallstones are obstructing the bile duct. Additionally, she mentioned an overall tenderness due to lupus, which may complicate the presentation.
PAST MEDICAL AND SURGICAL HISTORY
Lupus
CHRONIC MEDICAL CONDITIONS SIGNIFICANTLY AFFECTING CARE
Lupus, which contributes to generalized tenderness.
PHYSICAL EXAM
General: Alert, no acute distress.
Skin: Warm, dry.
Head: Normocephalic, atraumatic.
Neck: Supple, trachea midline.
Eye, Ears, Nose, Mouth, and Throat: Oral mucosa moist.
Cardiovascular: Normal peripheral perfusion, No edema.
Respiratory: Respirations are non-labored.
Gastrointestinal: Abdomen is non-distended; tenderness noted particularly under the right ribcage.
Back: Normal range of motion, Normal alignment.
Musculoskeletal: Normal range of motion, normal strength.
Neurological: Alert and oriented to person, place, time, and situation. No focal neurological deficit observed.
Psychiatric: Cooperative, appropriate mood & affect.
PLAN
1. Obtain a repeat ultrasound to compare with previous findings, specifically to evaluate the gallstones and assess for any biliary obstruction.
2. Based on ultrasound results, determine if surgical intervention is necessary, i.e., cholecystectomy if stones are causing obstruction.
3. If stones are mobile and no obstruction is evidenced, follow-up with general surgery for elective gallbladder removal if indicated.
DIFFERENTIAL DIAGNOSIS
The Differential Diagnosis includes, in no particular order and is not limited to:
1. Biliary colic due to gallstones
2. Cholecystitis
3. Biliary obstruction
4. Gastrointestinal reflux disease
5. Pancreatitis
6. Hepatitis
7. Musculoskeletal pain
8. Peptic ulcer disease
9. Costochondritis
10. Rib fracture or severe bruising from etiology related to lupus.
Discharge Plan
Departure
Patient Disposition: Home (Routine Discharge)
Date of Disposition: 05/13/25
Time of Disposition: 00:50
Patient with high blood pressure during this ER visit?: No
Condition: Fair
Discharge Problem:
Gallstones
Instructions: Gallstones - ED (DC), Abdominal Pain
Prescriptions:
No Action
celecoxib 200 mg Capsule
200 mg PO Q48H
pantoprazole 40 mg Tablet,Delayed Release (Dr/Ec)
40 mg PO DAILY
diphenhydramine HCl [Benadryl] 25 mg Capsule
25 mg PO HS
albuterol sulfate 90 mcg/actuation Hfa Aerosol Inhaler
2 puff INHALATION R Q6HPRN PRN (Reason: sob)
fluticasone propionate 50 mcg/actuation [place],Suspension
1 spray INTRANASAL QPM
ezetimibe 10 mg Tablet
10 mg PO QPM
nebivolol 2.5 mg Tablet
5 mg PO QPM
Patient Comments:
04/26/24: Patient can adjust dosage depending on blood pressure
melatonin 10 mg Tablet
10 mg PO HS
guaifenesin [Mucinex] 600 mg Tablet Extended Release 12hr
600 mg PO QPM
Benlysta 120 mg Recon Soln
480 mg IV Q4W
magnesium Tablet
325 tab PO HS
spironolactone 25 mg Tablet
25 mg PO BID
aspirin 81 mg Tablet
81 mg PO DAILY
Praluent Pen 75 mg/mL Pen Injector
75 mg SC Q2W
Patient Comments:
pt did not have last dose - on hold due to cramping throughout body
vitamin D3-vitamin K2 125 mcg (5,000 unit)-100 mcg Capsule
2 cap PO DAILY
Referrals:
Drew Summers MD [Active, Family Practice] - Follow up in 5-7 days
Fili Garcia MD [Active, Surgical] - Follow up in 2-3 days
Activity Restrictions/Additional Instructions:
Thank you for visiting the Emergency Department at [facility].
1. Please schedule a follow up appointment as directed. Call first thing tomorrow morning to make an appointment.
2. If indicated, please take your medications as instructed and indicated on discharge paperwork.
3. If any of your symptoms do not improve, or persist, or become more severe within 6-12 hours, please return to the emergency department for further care.
4. Please return to the emergency department if you develop a headache, neck pain/stiffness, fever greater than 100.4F, chest pain, shortness of breath, persistent nausea, vomiting, slurred speech, difficulty walking, numbness/tingling, weakness,
signs of infection or any other symptoms that are worrisome to you.
Please call [phone] if you have any questions.
Interventions
Interventions:
*Risk Screen - Suicide Last Done: 05/12/25 19:34
*General Assessment Last Done: 05/12/25 22:01
*Neglect/Abuse Screening Last Done: 05/12/25 19:34
*ED- Fall Risk Assessment Last Done: 05/12/25 22:01
*ED COVID-19 Vaccine History Last Done: 05/12/25 22:01
LI-Dcfctp-Nuxzoeccbr Assessment Last Done: 05/12/25 22:01
Discharge Date and Time
Print Language: IRANIAN
[2025-05-12 22:20] LABS: Hematocrit 44.3 % (37.0-47.0); Hemoglobin 15.6 g/dL (12.0-16.0); Mean Corp Hgb Conc. 35.2 g/dL (33.0-37.0); Mean Corpuscular Volume 91.7 fL (81.0-99.0); Nucleated Red Blood Cells % 0 %; Platelet Count 377 10^3/uL (130-400); Red Cell Dist. Width 11.9 % (11.5-14.5)
[2025-05-12 22:49] LABS: ALT (SGPT) 24 U/L (0-35); AST (SGOT) 29 U/L (14-36); Albumin 4.5 g/dl (3.5-5.0); Alkaline Phosphatase 96 U/L (38-126); Blood Urea Nitrogen 21 mg/dl (7-17); Calcium 10.5 mg/dl (8.4-10.2); Carbon Dioxide 25 mmol/L (22-30); Chloride 102 mmol/L (98-107); Estimated Creatinine Clearance 70 ml/min; Glucose 115 mg/dl (70-99); Lipase 152 U/L (23-300); Potassium 4.3 mmol/L (3.5-5.1); Sodium 134 mmol/L (135-145); Total Protein 7.2 g/dl (6.3-8.2); eGFR > 60.00
[2025-05-12] MEDS: NSS 1000 IV (23:45)
[2025-05-13 00:08] VITALS: BP 126/62
[2025-05-13 00:23] LABS: Urine Character Clear (Clear)
[2025-05-13 01:00] VITALS: BP 119/63
== END 2025-05-13 01:29 | disposition home or self-care (01) ==
LOC: EMR 19:27
PROVIDERS: Emergency Medicine; EMERGENCY PHYSICIAN Student in an Organized Health Care Education/Training Program
DX: K80.20 Calculus of gallbladder without cholecystitis without obstruction (principal); J45.909 Unspecified asthma, uncomplicated
CPT/HCPCS: 96360; 99284; 76705; 80053; 81003; 83690; 85025